=== PATIENT | female | born 1975 | race African-American/Black ===

== ENCOUNTER 2016-05-11 12:16 | Outpatient (CLI) ==
[2012-10-05 13:07] VITALS: TEMP 98.7
[2016-04-23 22:07] VITALS: BMI 30.7
--- NOTE | 2016-05-11 13:03 | DI ---
EXAM: Radiographs, right foot HISTORY: Right foot pain. COMPARISON: 02/05/2015. TECHNIQUE: Three views. FINDINGS: Bone mineralization is normal. There is no fracture or dislocation. Mild spurring seen at the first tarsal metatarsal joint. There are small calcaneal spurs. No focal soft tissue abnorm ality is seen. IMPRESSION: 1. Mild first TMT osteoarthritis. 2. Small calcaneal spurs.
== END 2016-05-11 12:17 | disposition home or self-care (01) ==
LOC: RAD 12:16
PROVIDERS: ATTEND Nurse Practitioner Family
DX: M79.671 Pain in right foot (principal); M79.89 Other specified soft tissue disorders

== ENCOUNTER 2016-06-02 10:03 | Outpatient (CLI) ==
[2012-10-05 13:07] VITALS: TEMP 98.7
[2016-04-23 22:07] VITALS: BMI 30.7
[2016-06-02 10:50] LABS: FLU INTERNAL QC INTERNAL QC VALID; RAPID FLU A NEGATIVE (NEGATIVE); RAPID FLU B NEGATIVE (NEGATIVE)
== END 2016-06-02 10:04 | disposition home or self-care (01) ==
LOC: LAB 10:03
PROVIDERS: ATTEND Nurse Practitioner Family
DX: J02.9 Acute pharyngitis, unspecified (principal); R50.9 Fever, unspecified; R52 Pain, unspecified
CPT/HCPCS: 87651; 87804; 87880

== ENCOUNTER 2016-11-10 16:47 | Outpatient (CLI) ==
[2012-10-05 13:07] VITALS: TEMP 98.7
[2016-04-23 22:07] VITALS: BMI 30.7
[2016-11-10 18:04] LABS: ALBUMIN/GLOBULIN RATIO 1.18; ANION GAP 17.7; BILIRUBIN,TOTAL 0.64 mg/dL (0.00-1.20); BUN/CREATININE RATIO 6.31; CALCIUM 9.1 mg/dL (8.2-10.2); CREATININE 0.95 mg/dL (0.60-1.30); TOTAL PROTEIN 7.4 g/dL (6.4-8.2)
[2016-11-10 18:13] LABS: POTASSIUM 2.7 mmol/L (3.5-5.10)
== END 2016-11-10 16:48 | disposition home or self-care (01) ==
LOC: LAB 16:47
PROVIDERS: ATTEND Nurse Practitioner Family
DX: T50.1X5A Adverse effect of loop [high-ceiling] diuretics, initial encounter (principal); J02.9 Acute pharyngitis, unspecified
CPT/HCPCS: 36415; 80053; 87880

== ENCOUNTER 2016-11-10 23:42 | Emergency (ER) | payer OTHER ==
[2012-10-05 13:07] VITALS: BP 151/78; TEMP 98.7
[2016-11-10] MEDS ORDERED: POTASSIUM CHLORIDE 40 MEQ VIAL-ADDITIVE ONLY IV ONE (23:45)
[2016-11-10] MEDS ORDERED: K-DUR PO STA (23:50)
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
[2016-11-10 23:54] VITALS: BP 134/89; TEMP 98.2; BMI 26.8
[2016-11-10] MEDS ORDERED: SODIUM CHLORIDE 0.9%-KCL 40MEQ 1,000 ML IV STA (23:54)
== END 2016-11-11 04:36 | disposition home or self-care (01) ==
LOC: ED 23:42
DX: E87.6 Hypokalemia (principal); Z79.899 Other long term (current) drug therapy
CPT/HCPCS: 36415; 80053; 84132; 87880; 96360; 96361; 99283

== ENCOUNTER 2016-11-18 07:10 | Inpatient (IN) ==
[2016-11-18 07:39] LABS: BASOPHILS % (AUTO) 0.5 % (0.0-3.0); EOSINOPHILS # (AUTO) 0.1 K/ul (0.0-0.7); EOSINOPHILS % (AUTO) 0.6 % (0.0-7.0); HEMATOCRIT 36.2 % (37.0-47.0); HEMOGLOBIN 13.3 g/dl (12.0-16.0); IMMATURE GRANULOCYTE % (AUTO) 0.8 % (0.0-5.0); LYMPHOCYTES # (AUTO) 2.2 K/uL (0.60-3.4); LYMPHOCYTES % (AUTO) 26.8 (10.0-50.0); MEAN CORPUSCULAR HGB CONC 36.7 (31.8-35.4); MEAN CORPUSCULAR VOLUME 87.2 fl (81.0-99.0); MONOCYTES # (AUTO) 0.8 K/uL (0.4-2.0); MONOCYTES % (AUTO) 9.1 (0-10); NEUTROPHILS # (AUTO) 5.2 K/ul (2.0-6.9); NEUTROPHILS % (AUTO) 62.2; PLATELET COUNT 281 10^3/uL (140-440); RED BLOOD COUNT 4.15 10^6/ul (4.20-5.40); WHITE BLOOD COUNT 8.37 K/ul (4.6-10.2)
[2016-11-18 07:54] LABS: SERUM PREGNANCY INTERNAL QC INTERNAL QC VALID
[2016-11-18 08:10] LABS: ALANINE AMINOTRANSFERASE 23 U/L (12-78); ALBUMIN 3.4 g/dL (3.4-5.0); ALBUMIN/GLOBULIN RATIO 1.21; ALKALINE PHOSPHATASE 36 U/L (42-98); ANION GAP 12.8; ASPARTATE AMINO TRANSFERASE 26 U/L (15-37); BILIRUBIN,TOTAL 0.23 mg/dL (0.00-1.20); BLOOD UREA NITROGEN 7 mg/dL (7-18); BUN/CREATININE RATIO 8.64; CALCIUM 8.8 mg/dL (8.2-10.2); CARBON DIOXIDE 23 mmol/L (21-32); CHLORIDE 106 mmol/L (98-107); CREATINE KINASE 260 U/L; CREATININE 0.81 mg/dL (0.60-1.30); GLUCOSE 60 mg/dL (70-110); POTASSIUM 2.8 mmol/L (3.5-5.10); SODIUM 139 mmol/L (136-145); TOTAL PROTEIN 6.2 g/dL (6.4-8.2)
[2016-11-18 08:14] LABS: CREATINE KINASE MB 1.8 ng/ml (0.0-3.6)
--- NOTE | 2016-11-18 08:38 | DI ---
EXAM: CHEST FRONTAL AND LATERAL VIEWS HISTORY: Chest pain. COMPARISON: 04/23/2016 FINDINGS: Heart size is normal Heart size and mediastinal contour within normal limits. No acute infiltrates. Normal vascularity with no pleural fluid or pneumothorax. The bony thorax has no acut e finding. IMPRESSION: No acute process.
[2016-11-18 08:47] LABS: COCAIN SCREEN,URINE NEGATIVE (NEGATIVE)
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
[2016-11-18] MEDS ORDERED: POTASSIUM CHLORIDE PREMIX RUN 10 MEQ in PREMIX 100 ML WATER 1 BAG IV STA (08:55)
[2016-11-18] MEDS ORDERED: NON-FORMULARY MEDICATION (Amantadine Hcl [Amantadine] 100 MG) PO SCH ×22 (09:00)
[2016-11-18] MEDS ORDERED: POTASSIUM CHLORIDE PREMIX RUN 100 ML IV ONE (10:03)
[2016-11-18] MEDS: SYMMETREL PO SCH ×2 (10:15→20:40)
[2016-11-18] MEDS: AUGMENTIN 875-125 MG TAB PO SCH ×2 (10:16→17:16)
[2016-11-18] MEDS: XANAX PO SCH ×3 (10:16→20:40)
[2016-11-18] MEDS: SODIUM CHLORIDE 1,000 ML IV SCH (10:18)
[2016-11-18 10:49] VITALS: BMI 26.8
[2016-11-18 12:26] LABS: ANION GAP 12.4; BUN/CREATININE RATIO 9.58; CALCIUM 8.6 mg/dL (8.2-10.2); CREATININE 0.73 mg/dL (0.60-1.30); POTASSIUM 3.4 mmol/L (3.5-5.10)
[2016-11-18 15:23] LABS: CREATINE KINASE 215 U/L
[2016-11-18 15:28] LABS: CREATINE KINASE MB 1.3 ng/ml (0.0-3.6)
[2016-11-18] MEDS: NEURONTIN PO SCH (20:41)
[2016-11-18] MEDS ORDERED: NON-FORMULARY MEDICATION (Gabapentin [Gabapentin] 600 MG) PO SCH (21:00)
[2016-11-18] MEDS ORDERED: NEURONTIN PO SCH (21:00)
[2016-11-18 23:31] LABS: CREATINE KINASE 183 U/L
[2016-11-18 23:46] LABS: CREATINE KINASE MB 1.1 ng/ml (0.0-3.6)
[2016-11-19] MEDS: SODIUM CHLORIDE 1,000 ML IV SCH ×3 (02:30→19:22)
[2016-11-19 04:54] LABS: BASOPHILS % (AUTO) 0.5 % (0.0-3.0); EOSINOPHILS # (AUTO) 0.1 K/ul (0.0-0.7); EOSINOPHILS % (AUTO) 1.3 % (0.0-7.0); HEMATOCRIT 32.4 % (37.0-47.0); HEMOGLOBIN 11.5 g/dl (12.0-16.0); IMMATURE GRANULOCYTE % (AUTO) 0.5 % (0.0-5.0); LYMPHOCYTES # (AUTO) 2.5 K/uL (0.60-3.4); LYMPHOCYTES % (AUTO) 40.3 (10.0-50.0); MEAN CORPUSCULAR HEMOGLOBIN 31.8 pg (27.0-31.0); MEAN CORPUSCULAR HGB CONC 35.5 (31.8-35.4); MEAN CORPUSCULAR VOLUME 89.5 fl (81.0-99.0); MONOCYTES # (AUTO) 0.5 K/uL (0.4-2.0); NEUTROPHILS # (AUTO) 3.1 K/ul (2.0-6.9); NEUTROPHILS % (AUTO) 49.4; PLATELET COUNT 219 10^3/uL (140-440); RED BLOOD COUNT 3.62 10^6/ul (4.20-5.40); WHITE BLOOD COUNT 6.28 K/ul (4.6-10.2)
[2016-11-19 05:12] LABS: ALBUMIN 2.8 g/dL (3.4-5.0); ALBUMIN/GLOBULIN RATIO 1.27; ANION GAP 12.2; BILIRUBIN,TOTAL 0.38 mg/dL (0.00-1.20); BUN/CREATININE RATIO 15.94; CALCIUM 8.1 mg/dL (8.2-10.2); CREATININE 0.69 mg/dL (0.60-1.30); POTASSIUM 3.2 mmol/L (3.5-5.10)
[2016-11-19] MEDS ORDERED: K-DUR PO STA (08:41)
[2016-11-19] MEDS: SYMMETREL PO SCH ×2 (08:57→20:27)
[2016-11-19] MEDS: AUGMENTIN 875-125 MG TAB PO SCH ×2 (08:57→16:56)
[2016-11-19] MEDS ORDERED: PREDNISONE PO SCH ×2 (10:00)
[2016-11-19] MEDS: XANAX PO SCH ×3 (11:10→20:27)
[2016-11-19 14:18] LABS: MAGNESIUM 2.1 mg/dL (1.7-2.2)
--- NOTE | 2016-11-19 14:31 | HP ---
DATE OF SERVICE: 11/18/16 CHIEF COMPLAINT: "I have been having some chest pain." HISTORY OF PRESENT ILLNESS: This is a 40-year-old female, who recently had a problem with potassium 2.6. The patient had overnight potassium transfusion in the emergency room and went home. The patient had, previous to admission, been drinking the whole night and began having chest pain. She started having a heavy pressure in the midsternal chest, radiates to the left side. She awoke with the pain, not associated with nausea , vomiting and no radiation, not short of breath. She has been taking Augmentin for strep throat and steroid medications. She was seen in the emergency room by Dr. Brower. Potassium was 2.8. EKG did not show any changes. At that time, in view of recurring hypokalemia, the patient is admitted with myalgias and hurting all over. The patient was admitted to the hospital for observation to replenish the potassium. REVIEW OF SYSTEMS: CONSTITUTIONAL: Weakness, tiredness, myalgias all over the body. No fever, no chills. HEENT: Normal. ENDOCRINE: No weight gain; no weight loss. CVS: Chest pain. No PND, no orthopnea. No shortness of breath. No PND, no orthopnea. RESPIRATORY: No cough, no congestion. No hemoptysis. GI: No nausea, no vomiting. No abdominal pain. No melena. : No hematuria. No polyuria. MUSCULOSKELETAL: No joint swelling. PSYCHIATRIC: Not anxious. No depression. No suicidal thoughts. No homicidal thoughts. SKIN: Intact, no open lesions. PAST MEDICAL HISTORY: 1. Dyslipidemia 2. Hypertension 3. Multiple sclerosis - sees neurologist Dr. Baxter in [place], [place]. 4. Lupus 5. Bipolar disorder 6. Depression 7. Anxiety 8. Nicotine use 9. Alcohol ingestion PAST SURGICAL HISTORY: 1. Septoplasty 2. times two 3. Gastric bypass - Lap Band 4. Hernia repair times two 5. Exploratory laparotomy FAMILY HISTORY: Significant for prostate cancer and thyroid problems. PERSONAL HISTORY: The patient does smoke, drinks alcohol sometimes. No substance use. MEDICATIONS: (HOME) 1. Multivitamin 2. Norethindrone Acetate 3. Prazosin 4. Buspirone 5. Calcium Carbonate 6. Xanax 7. Zyrtec 8. Interferon Beta-1A 9. Protonix 10. Plaquenil 11. Hydroxyzine 12. Vitamin B 13. Pristiq 14. Depo Provera 15. Gabapentin 16. Topamax 17. Prednisone 18. Amoxicillin/Clavulanic Acid 19. Hydrochlorothiazide 20. Fosamax ALLERGIES: MOXIFLOXACIN, LAMOTRIGINE, LITHIUM PHYSICAL EXAMINATION: V/S: BP 133/97, respiratory rate 18, heart rate 76, temperature 98.4. HEENT: Atraumatic, normocephalic. No scleral icterus. Pallor positive. Mucosa dry. NECK: Supple. No JVD, no bruit. No lymphadenopathy. No thyromegaly. HEART: S1, S2 normal. No murmur. No cyanosis or clubbing. No ascites. LUNGS: Bilaterally are clear to auscultation. No rales or rhonchi. ABDOMEN: Epigastric discomfort is present. Bowel sounds are active. No CVA tenderness. No rigidity or guarding. EXTREMITIES: No cyanosis, clubbing or pedal edema. MUSCULOSKELETAL: Normal joints, no swelling. NEUROLOGIC: The patient is awake, alert, oriented times three. SKIN: Intact; no open lesions. LYMPHATIC: No lymph nodes palpable. LABS: White count 8.37, hemoglobin 13.3, hematocrit 36.2, platelet count 281. Sodium 139, potassium 2.8, chloride 106, bicarb 23, BUN 7, creatinine 0.81, glucose 60. The first set of cardiac enzymes are negative. ASSESSMENT: 1. HYPOKALEMIA, RECURRENT 2. ALCOHOL INTOXICATION 3. EPIGASTRIC PAIN MOST LIKELY FROM THE STOMACH 4 HISTORY OF LUPUS 5. MULTIPLE SCLEROSIS 6. DEPRESSION 7. BIPOLAR PLAN: 1. Admit patient to the observation 2. IV potassium 3. Continue home medications 4. Recheck the potassium by evening time 5. Diet - regular 6. Activity as tolerated 7. Continue Amoxicillin and clavulanic acid for upper respiratory infection 8. Will follow the patient in daily rounds [facility]
--- NOTE | 2016-11-19 14:41 | PN ---
DATE OF SERVICE: 11/19/16 SUBJECTIVE: The patient is admitted with hypokalemia. Potassium went up to 3.4 and now down to 3.2. No abdominal pain. No nausea or myalgias. REVIEW OF SYSTEMS: CONSTITUTIONAL: No fever, no chills. HEENT: Normal. ENDOCRINE: No weight gain, no weight loss. CVS: No angina symptoms. No CHF symptoms. No palpitations. No atypical chest pain for CAD. No shortness of breath. No PND, no orthopnea. RESPIRATORY: No cough, no hemoptysis. GI: No nausea, no vomiting. No abdominal pain. : No hematuria. No polyuria. MUSCULOSKELETAL:. No joint swelling. No myalgias. PSYCHIATRIC: Not anxious. No depression. No suicidal thoughts. No homicidal thoughts. SKIN: Intact. No rash. PHYSICAL EXAMINATION: V/S: BP 132/93, respiratory rate 20, heart rate 73, temperature 98.2. HEENT: Normocephalic, atraumatic. Mucosa dry, pallor positive. No icterus. NECK: Supple. No JVD, no carotid bruit. No lymphadenopathy. LUNGS: Decreased breath sounds. Clear to auscultation. No rales or rhonchi. HEART: S1, S2 normal. No S3. No murmur, gallop or regurgitation. ABDOMEN: Soft, nontender. Bowel sounds active. No rigidity. No rebound or guarding. No CVA tenderness. EXTREMITIES: No clubbing, cyanosis or pedal edema. MUSCULOSKELETAL: No joint swelling. NEUROLOGIC: The patient is awake, alert, oriented times three. No focal deficit. LYMPHATIC: No lymph nodes palpable. SKIN: Intact. LABS: Sodium 138, potassium 3.2, chloride 109, bicarb 20, BUN 11, creatinine 0.69, glucose 69. White count 6.28, hemoglobin 11.5, hematocrit 32.4, platelet count 219. ASSESSMENT: 1. HYPOKALEMIA 2. GERD 3. PEPTIC ULCER DISEASE 4. UPPER RESPIRATORY INFECTION BEING TREATED WITH AMOXICILLIN, CLAVULANIC ACID 5. MULTIPLE SCLEROSIS 6. LUPUS 7. DEPRESSION, BIPOLAR PLAN: 1. Extra 40 potassium today 2. IV fluids 3. Recheck potassium and magnesium by noontime 4. Out of bed to chair 5. Activity as tolerated TIME SPENT: More than 30 minutes MTDD
[2016-11-19] MEDS: NEURONTIN PO SCH (20:27)
[2016-11-19 23:59] VITALS: BP 109/84; TEMP 98
--- NOTE | 2016-11-25 14:42 | AMA ---
HISTORY: The patient was upset that she has to stay in the hospital. Tried to explain that because of the potassiums she needed to be in the hospital and continue the potassium. The patient said that she doesn't have to stay and she has things to do at home so she talked to the nurse Albertina and signed out AMA. Explained that incase the patient's symptoms get worse she is always advised to come back. LIVIER
== END 2016-11-19 22:50 | disposition left against medical advice (07) | DRG 313 ==
LOC: ED 07:10 → MEDSURG B 09:10
PROVIDERS: ADMIT Emergency Medicine; ATTEND Emergency Medicine
DX: R07.9 Chest pain, unspecified (principal); E87.6 Hypokalemia; M32.9 Systemic lupus erythematosus, unspecified; G35 Multiple sclerosis; F10.129 Alcohol abuse with intoxication, unspecified; K27.9 Peptic ulcer, site unspecified, unspecified as acute or chronic, without hemorrhage or perforation; J06.9 Acute upper respiratory infection, unspecified; F32.9 Major depressive disorder, single episode, unspecified; Z79.899 Other long term (current) drug therapy
CPT/HCPCS: 36415; 80048; 80053; 80306; 80307; 82550; 82553; 83735; 84132; 84484; 84703; 85025; 93005; 93010; 99284

== ENCOUNTER 2016-11-24 16:57 | Outpatient (CLI) ==
[2012-10-05 13:07] VITALS: TEMP 98.7
[2016-11-24 17:37] LABS: ALBUMIN 3.7 g/dL (3.4-5.0); ALBUMIN/GLOBULIN RATIO 1.09; ANION GAP 13.3; BILIRUBIN,TOTAL 0.37 mg/dL (0.00-1.20); BUN/CREATININE RATIO 7.29; CALCIUM 9.6 mg/dL (8.2-10.2); CREATININE 0.96 mg/dL (0.60-1.30); POTASSIUM 3.3 mmol/L (3.5-5.10); TOTAL PROTEIN 7.1 g/dL (6.4-8.2)
== END 2016-11-24 16:58 | disposition home or self-care (01) ==
LOC: LAB 16:57
PROVIDERS: ATTEND Emergency Medicine
DX: E87.6 Hypokalemia (principal)
CPT/HCPCS: 36415; 80053

== ENCOUNTER 2016-12-23 13:25 | Outpatient (CLI) ==
[2012-10-05 13:07] VITALS: TEMP 98.7
[2016-12-23 13:35] LABS: HEMATOCRIT 37.8 % (37.0-47.0); HEMOGLOBIN 13.2 g/dl (12.0-16.0); MEAN CORPUSCULAR HGB CONC 34.9 (31.8-35.4); MEAN CORPUSCULAR VOLUME 91.7 fl (81.0-99.0); RED BLOOD COUNT 4.12 10^6/ul (4.20-5.40); WHITE BLOOD COUNT 6.11 K/ul (4.6-10.2)
[2016-12-23 13:38] LABS: BILIRUBIN,URINE Negative (NEGATIVE); KETONES,URINE Negative (NEGATIVE); LEUKOCYTE ESTERASE ,URINE Negative (NEGATIVE); NITRITE,URINE Negative (NEGATIVE); PROTEIN,URINE Negative (NEGATIVE); URINE, BLOOD Negative (NEGATIVE)
[2016-12-23 13:40] LABS: ADD URINE MICROSCOPIC NO
[2016-12-23 13:46] LABS: ALBUMIN 3.6 g/dL (3.4-5.0); ALBUMIN/GLOBULIN RATIO 1.09; ANION GAP 16.7; BILIRUBIN,TOTAL 0.35 mg/dL (0.00-1.20); BUN/CREATININE RATIO 6.25; CALCIUM 9.4 mg/dL (8.2-10.2); CREATININE 0.96 mg/dL (0.60-1.30); POTASSIUM 3.7 mmol/L (3.5-5.10); TOTAL PROTEIN 6.9 g/dL (6.4-8.2)
[2016-12-24 07:18] LABS: COMPLEMENT C3 87 mg/dL (82-167); COMPLEMENT C4 16 mg/dL (14-44)
== END 2016-12-23 13:26 | disposition home or self-care (01) ==
LOC: LAB 13:25
PROVIDERS: ATTEND Internal Medicine Rheumatology
DX: Z51.81 Encounter for therapeutic drug level monitoring (principal); M32.9 Systemic lupus erythematosus, unspecified
CPT/HCPCS: 36415; 80053; 81001; 85025; 85027; 86160; 86225

== ENCOUNTER 2017-03-16 11:56 | Outpatient (CLI) ==
[2012-10-05 13:07] VITALS: TEMP 98.7
== END 2017-03-16 11:57 | disposition home or self-care (01) ==
LOC: LAB 11:56
PROVIDERS: ATTEND Specialist
DX: G35 Multiple sclerosis (principal)
CPT/HCPCS: 36415

== ENCOUNTER 2017-04-13 09:03 | Outpatient (CLI) ==
[2012-10-05 13:07] VITALS: TEMP 98.7
[2017-04-13 10:22] LABS: FLU INTERNAL QC INTERNAL QC VALID; RAPID FLU A NEGATIVE (NEGATIVE); RAPID FLU B NEGATIVE (NEGATIVE)
== END 2017-04-13 09:04 | disposition home or self-care (01) ==
LOC: LAB 09:03
PROVIDERS: ATTEND Nurse Practitioner Family
DX: J02.9 Acute pharyngitis, unspecified (principal); R52 Pain, unspecified
CPT/HCPCS: 87651; 87804; 87880

== ENCOUNTER 2017-05-31 10:18 | Emergency (ER) ==
[2017-05-31 10:26] VITALS: BP 135/88; TEMP 98.1; BMI 28.7
--- NOTE | 2017-05-31 12:48 | CT ---
EXAM: CT head without contrast HISTORY: Dizziness COMPARISON: CT head 04/23/2016 and 12/04/2015 with prior MRI 02/11/2015 and multiple priors TECHNIQUE: Serial axial images of the brain were obtained from the skull base to the vertex without IV contrast. FINDINGS: The ventricles, cisterns and sulci are normal. The rowan-white matter junction is maintain ed. No midline shift or mass is identified. There is no abnormal intra or extra-axial fluid collect ion. The paranasal sinuses and mastoid air cells are clear. The osseous calvarium is intact. IMPRESSION: No acute intracranial abnormality or hemorrhage.
--- NOTE | 2017-05-31 12:53 | DI ---
EXAM: PA and lateral views of the chest HISTORY: Cough. COMPARISON: Chest x-ray 11/18/2016 and multiple priors FINDINGS: The cardiomediastinal silhouette is normal. There is no pneumothorax or pleural effusion. There is no consolidation, nodule or mass. The osseous structures are unremarkable. Soft tissues i n the upper abdomen demonstrates surgical changes and a gastric band. IMPRESSION: No acute cardiopulmonary process
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
== END 2017-05-31 13:32 | disposition home or self-care (01) ==
LOC: ED 10:18
DX: R53.1 Weakness (principal); E78.5 Hyperlipidemia, unspecified; I10 Essential (primary) hypertension; F17.210 Nicotine dependence, cigarettes, uncomplicated; Z79.899 Other long term (current) drug therapy
CPT/HCPCS: 36415; 80053; 81025; 85025; 87502; 87651; 93005; 93010; 99283

== ENCOUNTER 2017-06-11 13:48 | Outpatient (CLI) ==
[2012-10-05 13:07] VITALS: TEMP 98.7
== END 2017-06-11 13:49 | disposition home or self-care (01) ==
LOC: LAB 13:48
PROVIDERS: ATTEND Nurse Practitioner Family
DX: R05 Cough (principal)
CPT/HCPCS: 87804

== ENCOUNTER 2017-06-15 15:55 | Outpatient (CLI) | payer OTHER ==
[2012-10-05 13:07] VITALS: TEMP 98.7
== END 2017-06-15 15:56 | disposition home or self-care (01) ==
LOC: LAB 15:55
PROVIDERS: ATTEND Nurse Practitioner Family
DX: J02.9 Acute pharyngitis, unspecified (principal)
CPT/HCPCS: 87651

== ENCOUNTER 2017-06-21 15:32 | Outpatient (CLI) ==
[2012-10-05 13:07] VITALS: TEMP 98.7
== END 2017-06-21 15:33 | disposition home or self-care (01) ==
LOC: FCC-LAB 15:32
PROVIDERS: ATTEND Nurse Practitioner Family
DX: R50.9 Fever, unspecified (principal); M32.9 Systemic lupus erythematosus, unspecified
CPT/HCPCS: 36415; 80053; 85025; 87804

== ENCOUNTER 2017-06-22 16:11 | Outpatient (CLI) | payer OTHER ==
[2012-10-05 13:07] VITALS: TEMP 98.7
== END 2017-06-22 16:12 | disposition home or self-care (01) ==
LOC: FCC-LAB 16:11
PROVIDERS: ATTEND Nurse Practitioner Family
DX: M32.9 Systemic lupus erythematosus, unspecified (principal)
CPT/HCPCS: 36415; 85651

== ENCOUNTER 2017-07-19 16:27 | Outpatient (CLI) ==
[2012-10-05 13:07] VITALS: TEMP 98.7
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
== END 2017-07-19 16:28 | disposition home or self-care (01) ==
LOC: RAD 16:27
PROVIDERS: ATTEND Nurse Practitioner Family
DX: M54.6 Pain in thoracic spine (principal); M79.601 Pain in right arm; W19.XXXA Unspecified fall, initial encounter

== ENCOUNTER 2017-10-07 23:38 | Emergency (ER) ==
[2017-10-07 23:50] VITALS: BP 125/76; TEMP 97.9; BMI 28.8
[2017-10-07] MEDS ORDERED: DILAUDID 2 MG/ML SYRINGE IM STA (23:55)
[2017-10-07] MEDS ORDERED: ZOFRAN 4 MG/2 ML IM STA (23:55)
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
== END 2017-10-08 00:30 | disposition home or self-care (01) ==
LOC: ED 23:38
DX: R51 Headache (principal); F17.210 Nicotine dependence, cigarettes, uncomplicated
CPT/HCPCS: 96372; 99282

== ENCOUNTER 2017-10-11 15:29 | Outpatient (CLI) ==
[2012-10-05 13:07] VITALS: TEMP 98.7
--- NOTE | 2017-10-11 16:37 | CT ---
EXAM: CT of the abdomen pelvis without contrast History: Generalized abdominal pain. Comparison: CT abdomen pelvis 11/2015 Technique: Multiplanar CT images through the abdomen pelvis were obtained without the administration of IV contrast Findings: Lung bases are clear. No acute osseous abnormalities. No discrete gallstones identified by CT. No focal liver or splenic lesions. No abdirahman peripancreatic inflammation. Adrenal glands are unremarkable. No renal stones and no hydronephrosis. Postoperati ve changes of the bowel again noted. There is dilatation near the anastomosis but this is similar to the prior study. The gastric band device is at a more obtuse angle than expected but is stable comp ared to the prior study. The appendix is normal. There are several mildly dilated fluid-filled loop s of small bowel with no definite transition point identified. No bladder wall thickening. Scattere d colonic stool. No free air. No ascites. No change in the small ventral hernia containing fat. Impression: 1. Mildly dilated fluid-filled loops of small bowel could be due to enteritis, ileus versus low grad e or subacute small bowel obstruction. 2. The gastric band device is at a more obtuse angle than expected but stable compared to the prior study.
== END 2017-10-11 15:30 | disposition home or self-care (01) ==
LOC: RAD 15:29
PROVIDERS: ATTEND Nurse Practitioner Family
DX: R10.84 Generalized abdominal pain (principal); R19.7 Diarrhea, unspecified; J02.9 Acute pharyngitis, unspecified
CPT/HCPCS: 36415; 80053; 81001; 82150; 83690; 85025; 87651

== ENCOUNTER 2017-10-13 14:46 | Inpatient (IN) | payer OTHER ==
[2017-10-13] MEDS ORDERED: TYLENOL PO PRN (15:05)
[2017-10-13] MEDS ORDERED: ZOFRAN 4 MG/2 ML IVP PRN (15:06)
[2017-10-13 15:25] VITALS: BMI 29.9
[2017-10-13] MEDS ORDERED: VITAMIN B-12 IM SCH (15:30)
[2017-10-13] MEDS ORDERED: NORCO 5-325 PO PRN (15:30)
[2017-10-13] MEDS: SODIUM CHLORIDE 1,000 ML IV SCH (15:45)
[2017-10-13] MEDS: PROTONIX IV IVP SCH (16:10)
[2017-10-13] MEDS: LOVENOX SUBCUT SCH (16:10)
[2017-10-13] MEDS: NICODERM 21 MG TD SCH (16:45)
[2017-10-13] MEDS: CARAFATE PO SCH ×2 (16:46→21:03)
[2017-10-13] MEDS: DEMEROL 50 MG/ML VIAL IVP PRN (16:48)
[2017-10-13] MEDS ORDERED: NEURONTIN ONE (20:23)
[2017-10-13] MEDS ORDERED: NEURONTIN PO SCH (21:00)
[2017-10-13] MEDS ORDERED: NON-FORMULARY MEDICATION (Potassium Chloride [Potassium Chloride] 20 MEQ) PO SCH (21:00)
[2017-10-13] MEDS ORDERED: NON-FORMULARY MEDICATION (Prazosin Hcl [Prazosin Hcl] 2 MG) PO SCH (21:00)
[2017-10-13] MEDS ORDERED: NON-FORMULARY MEDICATION (Gabapentin [Gabapentin] 600 MG) PO SCH (21:00)
[2017-10-13] MEDS: MINIPRESS PO SCH (21:03)
[2017-10-13] MEDS: XANAX PO SCH (21:03)
[2017-10-13] MEDS: K-DUR PO SCH (21:03)
[2017-10-13] MEDS: GABAPENTIN 600 MG PO SCH ×2 (21:04→21:12)
[2017-10-13] MEDS: GABAPENTIN 1800 MG PO SCH (21:15)
[2017-10-14] MEDS: NORCO 5-325 PO PRN ×2 (01:13→20:27)
[2017-10-14] MEDS: SODIUM CHLORIDE 1,000 ML IV SCH ×2 (04:33→16:44)
[2017-10-14] MEDS: CARAFATE PO SCH ×4 (05:51→20:27)
[2017-10-14] MEDS: MULTIVITAMIN TABLET PO SCH (08:43)
[2017-10-14] MEDS: HYDROCHLOROTHIAZIDE PO SCH (08:43)
[2017-10-14] MEDS: ATARAX PO SCH (08:43)
[2017-10-14] MEDS: XANAX PO SCH ×3 (08:44→20:27)
[2017-10-14] MEDS: PRISTIQ ER PO SCH (08:44)
[2017-10-14] MEDS: NICODERM 21 MG TD SCH (08:44)
[2017-10-14] MEDS: PROTONIX IV IVP SCH (08:44)
[2017-10-14] MEDS: K-DUR PO SCH ×2 (08:44→20:27)
[2017-10-14] MEDS: ZYRTEC PO SCH (08:44)
[2017-10-14] MEDS: ZESTRIL PO SCH (08:44)
[2017-10-14] MEDS: LURASIDONE HCL 40 MG PO SCH (08:45)
[2017-10-14] MEDS: NORETHINDRONE ACETATE 5 MG PO SCH (08:45)
[2017-10-14] MEDS: LOVENOX SUBCUT SCH (08:46)
[2017-10-14] MEDS ORDERED: MYLANTA SUSP PO PRN (08:56)
[2017-10-14] MEDS ORDERED: NON-FORMULARY MEDICATION (Desvenlafaxine Succinate [Pristiq] 100 MG) PO SCH (09:00)
[2017-10-14] MEDS ORDERED: NON-FORMULARY MEDICATION (Hydrochlorothiazide [Hydrochlorothiazide] 12.5 MG) PO SCH (09:00)
[2017-10-14] MEDS ORDERED: NON-FORMULARY MEDICATION (Multivitamin 1 CAP) PO SCH (09:00)
[2017-10-14] MEDS: PREDNISONE PO SCH (09:14)
[2017-10-14] MEDS: GABAPENTIN 1800 MG PO SCH (20:26)
[2017-10-14] MEDS: MINIPRESS PO SCH (20:27)
[2017-10-15] MEDS: SODIUM CHLORIDE 1,000 ML IV SCH ×3 (05:02→21:37)
[2017-10-15] MEDS: CARAFATE PO SCH ×4 (05:45→20:55)
[2017-10-15] MEDS: NORETHINDRONE ACETATE 5 MG PO SCH (08:58)
[2017-10-15] MEDS: LURASIDONE HCL 40 MG PO SCH (08:58)
[2017-10-15] MEDS: MULTIVITAMIN TABLET PO SCH (08:58)
[2017-10-15] MEDS: XANAX PO SCH ×3 (08:59→20:55)
[2017-10-15] MEDS: PREDNISONE PO SCH (08:59)
[2017-10-15] MEDS: ATARAX PO SCH (08:59)
[2017-10-15] MEDS: K-DUR PO SCH ×2 (08:59→20:55)
[2017-10-15] MEDS: PRISTIQ ER PO SCH (08:59)
[2017-10-15] MEDS: ZESTRIL PO SCH (09:00)
[2017-10-15] MEDS: PROTONIX IV IVP SCH (09:00)
[2017-10-15] MEDS: NORCO 5-325 PO PRN ×3 (09:00→22:28)
[2017-10-15] MEDS: ZYRTEC PO SCH (09:00)
[2017-10-15] MEDS: HYDROCHLOROTHIAZIDE PO SCH (09:00)
[2017-10-15] MEDS: LOVENOX SUBCUT SCH (09:01)
[2017-10-15] MEDS: NICODERM 21 MG TD SCH (09:01)
--- NOTE | 2017-10-15 10:49 | DI ---
EXAM: Two views of the abdomen. History: Abdominal pain and diarrhea. Comparison: CT abdomen pelvis 10/11/2017 Findings: Nonspecific bowel gas pattern. Scattered colonic stool. Surgical changes are seen within the abdomen. Gastric band device is again seen with more obtuse angle than expected but stable comp ared to the prior study. No acute osseous abnormalities. No suspicious calcifications are seen proj ecting over the renal shadows. No free intraperitoneal air. Impression: Nonspecific but nonobstructive bowel gas pattern
[2017-10-15] MEDS: DEMEROL 50 MG/ML VIAL IVP PRN (13:02)
--- NOTE | 2017-10-15 15:25 | PN ---
DATE OF SERVICE: 10/14/17 SUBJECTIVE: The patient was admitted from the office for questionable small bowel obstruction and gastroenteritis. The patient was kept NPO and started having some bowel movements and nauseous feeling is better. She was able to tolerate the clear liquid diet. REVIEW OF SYSTEMS: CONSTITUTIONAL: No fever, no chills. HEENT: Normal. ENDOCRINE: No weight gain, no weight loss. CVS: No angina symptoms. No CHF symptoms. No palpitations. No atypical chest pain for CAD. No shortness of breath. No PND, no orthopnea. RESPIRATORY: No cough, no hemoptysis. GI: No nausea, no vomiting. No abdominal pain. : No hematuria. No polyuria. MUSCULOSKELETAL: No joint swelling. PSYCHIATRIC: Not anxious. No depression. No suicidal thoughts. No homicidal thoughts. SKIN: Intact. No rash. PHYSICAL EXAMINATION: V/S: Blood pressure 120/79, respiratory rate 16, heart rate 70, temperature 97.9. HEENT: Normocephalic, atraumatic. Mucosa dry. NECK: Supple. No JVD, no carotid bruit. No lymphadenopathy. LUNGS: Clear to auscultation. No rales or rhonchi. HEART: S1, S2 normal. No S3. No murmur, gallop or regurgitation. ABDOMEN: Soft, discomfort all over. Bowel sounds hypoactive. No rigidity. No rebound or guarding. No CVA tenderness. EXTREMITIES: No cyanosis, clubbing or pedal edema. MUSCULOSKELETAL: No joint swelling. NEUROLOGIC: Awake, alert, oriented times three. No focal deficit. LYMPHATIC: No lymph nodes palpable. SKIN: Intact. LABS: Sodium 140, potassium 3.6, chloride 114, bicarb 19, BUN 7, creatinine 0.71 and glucose 69. WBC 4.01, hgb 11.2, hct 34.4, plt count 123. ASSESSMENT: 1. Gastroenteritis 2. Small bowel obstruction 3. History of gastric bypass surgery 4. Multiple sclerosis 5. Obesity 6. Hypertension 7. Osteoarthritis PLAN: 1. Clear liquid diet 2. Advance as tolerated 3. Demerol for the pain 4. IV fluids 5. Daily I&O's TIME SPENT: More than 35 minutes MTDD
[2017-10-15] MEDS: MINIPRESS PO SCH (20:55)
[2017-10-15] MEDS: GABAPENTIN 1800 MG PO SCH (20:55)
[2017-10-16] MEDS ORDERED: VISTARIL INJ IM STA (00:15)
[2017-10-16] MEDS: DEMEROL 50 MG/ML VIAL IVP PRN (00:25)
[2017-10-16] MEDS: CARAFATE PO SCH ×3 (05:50→17:12)
[2017-10-16] MEDS: PRISTIQ ER PO SCH (08:09)
[2017-10-16] MEDS: PREDNISONE PO SCH (08:09)
[2017-10-16] MEDS: ATARAX PO SCH (08:09)
[2017-10-16] MEDS: K-DUR PO SCH (08:09)
[2017-10-16] MEDS: LURASIDONE HCL 40 MG PO SCH (08:09)
[2017-10-16] MEDS: NORETHINDRONE ACETATE 5 MG PO SCH (08:09)
[2017-10-16] MEDS: ZYRTEC PO SCH (08:09)
[2017-10-16] MEDS: MULTIVITAMIN TABLET PO SCH (08:10)
[2017-10-16] MEDS: NICODERM 21 MG TD SCH (08:10)
[2017-10-16] MEDS: HYDROCHLOROTHIAZIDE PO SCH (08:10)
[2017-10-16] MEDS: ZESTRIL PO SCH (08:10)
[2017-10-16] MEDS: XANAX PO SCH ×2 (08:10→16:59)
[2017-10-16] MEDS ORDERED: PROTONIX PO STA (08:11)
[2017-10-16] MEDS: PROTONIX IV IVP SCH (08:11)
[2017-10-16] MEDS: LOVENOX SUBCUT SCH (10:23)
[2017-10-16 10:27] VITALS: TEMP 98
[2017-10-16 13:52] VITALS: BP 101/66
--- NOTE | 2017-10-19 07:12 | DS ---
DATE OF SERVICE: 10/16/17 FINAL DIAGNOSIS: 1. QUESTIONABLE SMALL BOWEL OBSTRUCTION PER CT SCAN 2. PARTIAL SMALL BOWEL OBSTRUCTION 3. ENTERITIS 4. DYSLIPIDEMIA 5. HYPERTENSION 6. MULTIPLE SCLEROSIS, SHABNAM ELLSWORTH, NEUROLOGIST 7. LUPUS 8. BIPOLAR DISORDER 9. DEPRESSION 10. SEPTOPLASTY 11. 12. GASTRIC LAP BAND SURGERY 13. HERNIORRHAPHY 14. EXPLORATORY LAPAROTOMY 15. CURRENT EVERY DAY SMOKER 16. OCCASIONAL ALCOHOL DISCHARGE INSTRUCTIONS: Followup appointment at the [facility] within 5 to 7 days. MEDICATIONS AT DISCHARGE: B12 Astelin Cyclobenzeprine Hydrochlorothiazide Hydroxyzine Lisinopril Zofran Protonix Potassium Carafate Hydrocodone Fosamax Xanax Calcium Zyrtec Pristiq Neurontin Avenox Latuda Depo-Provera Multivitamin Prozac Prednisone NEW PRESCRIPTIONS: None DIET INSTRUCTIONS: Cardiac and Healthy, Soft, bland diet. ACTIVITY: As much as tolerated. DISEASE SPECIFIC EDUCATION: Small bowel obstruction and resolution has been discussed. Nonsurgical management discussed. HOSPITAL COURSE: This is a 41-year-old female with multiple medical problems and surgeries on the abdomen for weight loss. She went and saw Yina Resendez for abdominal pain, diarrhea for which she did the CT abdomen and pelvis which showed enteritis and partial small bowel obstruction. At that time, the patient was admitted directly from the office to the hospital. She was kept NPO. Bowel movements were liquid like the first day and second day. Slowly the patient started having increased appetite, started on clear liquids, was able to tolerate. She was up and about walking, did not have any problems. As the patient was active and mobile, Lovenox DVT prophylaxis was not given. We did one more chest x-ray which did not show any obstructive pathology. The patient one day had sinus tachycardia of 140 when she suddenly got up and went to the bathroom and resolved by itself. Will go ahead and order TSH levels and will followup with the patient in the office within 5 to 7 days. TIME SPENT: MORE THAN 65 MINUTES MTDD
[2017-10-20] MEDS ORDERED: FOSAMAX PO SCH (09:00)
== END 2017-10-16 17:33 | disposition home or self-care (01) | DRG 392 ==
LOC: MEDSURG B 14:46
PROVIDERS: ADMIT Emergency Medicine; ATTEND Emergency Medicine
DX: K52.9 Noninfective gastroenteritis and colitis, unspecified (principal); G35 Multiple sclerosis; M32.9 Systemic lupus erythematosus, unspecified; M79.7 Fibromyalgia; E78.5 Hyperlipidemia, unspecified; I10 Essential (primary) hypertension; R10.9 Unspecified abdominal pain; E66.9 Obesity, unspecified; R19.7 Diarrhea, unspecified; M19.90 Unspecified osteoarthritis, unspecified site; F32.9 Major depressive disorder, single episode, unspecified; F31.9 Bipolar disorder, unspecified; Z72.0 Tobacco use; Z68.29 Body mass index [BMI] 29.0-29.9, adult; Z87.898 Personal history of other specified conditions; Z98.890 Other specified postprocedural states
CPT/HCPCS: 36415; 80053; 81001; 81025; 84436; 84443; 84479; 85025

== ENCOUNTER 2017-10-20 06:30 | Outpatient (CLI) ==
[2012-10-05 13:07] VITALS: TEMP 98.7
--- NOTE | 2017-10-20 10:01 | ECHO2D ---
Date of Exam: 10/20/17 Ordering Physician: DR. LYNNETTE HORTON Room #: OP Reason for Echo: PALPITATIONS, SYNCOPE M-Mode Normal Adult Results LV Dimensions Normal Adult Results AoV Opening excursions >1.6 >1.6 LVEDD-base- 3.5-5.8 4.3 Ao root dimensions 2.0-3.7 3.1 LVESD-base- 3.1-4.6 L. Atrium dimensions 1.9-3.8 3.1 Post. Wall thickness 0.8-1.1 1.0 IV septum (thickness) 0.7-1.2 1.0 Post. Wall excursion 0.72-1.3 NORMAL Septal motion NORMAL Systolic motion R. Ventricular cavity 1.5-2.0 NORMAL LVEF 60% 55% Paradoxical septal wall motion NORMAL 2-D : 2-D M Mode Echocardiogram was performed using apical four chamber and left parasternal long and short axis views. Mitral, tricuspid and aortic valves appear to be normal. Contractility of the left ventricle seems to be normal, so is the cavity size. Left atrial cavity size and aortic root appear to be normal. There is no pericardial effusion. There is no thrombus noted in the left ventricular or left aortic cavity. No mitral valve prolapse noted. M-MODE: MV: NORMAL AV: NORMAL TV: NORMAL PV: CHAMBER SIZE: NORMAL WALL MOTION: NORMAL PERICARDIUM: NORMAL INTERPRETATION: 1. NORMAL 2 "D" "M" [facility]
== END 2017-10-20 06:31 | disposition home or self-care (01) ==
LOC: CAR 06:30
PROVIDERS: ATTEND Emergency Medicine
DX: R00.2 Palpitations (principal); R55 Syncope and collapse

== ENCOUNTER 2017-10-22 06:46 | Outpatient (CLI) ==
[2012-10-05 13:07] VITALS: TEMP 98.7
--- NOTE | 2017-10-22 10:34 | STRESSECHO ---
Date of Test:10/22/17 Ordering Physician: DR. LYNNETTE HORTON Occupation: DISABLED Reason for Exam: PALPITATIONS, SYNCOPE Smoking History: 15 PK/YR Height: 66 " Weight: 184 LBS Current Medications: PRISTIQ, GABAPENTIN, ZOFRAN, PROTONIX, HCTZ, HYDROXYZINE, DEPO-PROVERA, CYCLOBENZAPRINE, HYDROCODONE, LATUDA, CARAFATE, LISINOPRIL Resting EKG: SINUS RHYTHM/ POOR R WAVE PROGRESSION Target Heart Rate: 153/180 S-T SEGMENT STAGE MPH/GRADE HEART RATE BPM BLOOD PRESSURE MMHG RHYTHM +/- ELEVATION DEPRESSION SYMPTOMS,COMMENTS AT REST 70 118/78 SR X NONE 1 1.7/10% 126 140/70 SR X NONE 2 2.5/12% 3 3.4/14% 4 4.2/16% 5 5.0/18% Immediately After 153 152/80 SR X FATIGUE Minutes Post Exercise 1:00 116 162/80 SR X NO COMMENTS Minutes Post Exercise 5:00 80 SR X NO COMMENTS DURATION OF EXERCISE: 4:52 MAXIMUM HEART RATE REACHED: 153 BPM REASON FOR TERMINATION: FATIGUE 98% OXYGEN SATURATION WITH EXERCISE ON ROOM AIR METS: 7.0 INTERPRETATION: 1. NO EVIDENCE OF ISCHEMIA BYS T-T WAVE 2. NO CHEST PAIN OR CHEST DISCOMFORT 3. BLOOD PRESSURE RESPONSE: NORMAL 4. NO ARRHYTHMIAS NORMAL LEFT VENTRICULAR CONTRACTILITY--RESTING AND POST EXERCISE MTDD
--- NOTE | 2017-10-22 10:36 | ECHOSTRESS ---
Date of Exam: 10/22/17 Ordering Physician: DR. LYNNETTE HORTON Reason for Echo: SYNCOPE WITH COLLAPSE, PALPITATIONS, STRESS TEST--NO ISCHEMIA M-Mode Normal Adult Results LV Dimensions Normal Adult Results AoV Opening excursions >1.6 LVEDD-base- 3.5-5.8 Ao root dimensions 2.0-3.7 LVESD-base- 3.1-4.6 L. Atrium dimensions 1.9-3.8 Post. Wall thickness 0.8-1.1 IV septum (thickness) 0.7-1.2 Post. Wall excursion 0.72-1.3 Septal motion Systolic motion R. Ventricular cavity 1.5-2.0 LVEF 60% Paradoxical septal wall motion 2-D: NORMAL LEFT VENTRICULAR CONTRACTILITY--RESTING AND POST EXERCISE M-MODE: MV: AV: TV: PV: CHAMBER SIZE: WALL MOTION: NORMAL LEFT VENTRICULAR CONTRACTILITY--RESTING AND POST EXERCISE PERICARDIUM: INTERPRETATION: 1. NORMAL LEFT VENTRICULAR CONTRACTILITY--RESTING AND POST EXERCISE MTDD
--- NOTE | 2017-10-26 10:49 | HOLTER ---
PATIENT INFORMATION AND COMMENTS Attending Physician: DR. LYNNETTE HORTON Indications: PALPITATIONS, SYNCOPE WITH COLLAPSE __ Patient Medications: ALPRAZOLAM, PROMETHAZINE, GABAPENTIN, ZOFRAN, PROTONIX, HCTZ, DEPO-PROVERA, NORCO, LATUDA, CARAFATE, LISINOPRIL __ Pre-procedure Summary: Protocol: Standard Heart Rate Started: 10/22/17842 Minimum: 56 BPM Weight: 184 LBS Ended: 10/23/17842 Maximum: 157 BPM Height: 66" Duration: 24 HOURS Average: 81 BPM _ INTERPRETATIONS/OBSERVATIONS: 1. BASIC RHYTHM: SINUS, RATE 60 BPM TO 150 BPM, AVERAGE 80 BPM 2. RARE PVC'S, FEW TO INFREQUENT PAC'S 3. TWO SHORT RUNS OF SVT ( 4 BEATS EACH) 4. NO ST-T WAVE CHANGES FROM BASELINE 5. NO CORRELATION WITH ACTIVITY LOG MTDD
== END 2017-10-22 06:47 | disposition home or self-care (01) ==
LOC: CAR 06:46
PROVIDERS: ATTEND Emergency Medicine
DX: R55 Syncope and collapse (principal); R07.2 Precordial pain; R00.2 Palpitations
CPT/HCPCS: 93227

== ENCOUNTER 2017-12-20 11:04 | Outpatient (CLI) | payer OTHER ==
[2012-10-05 13:07] VITALS: TEMP 98.7
--- NOTE | 2017-12-20 22:46 | MRI ---
EXAM: Cervical spine MRI with and without contrast. HISTORY: Multiple sclerosis. Neck pain. COMPARISON: Cervical spine MRI 04/12/2007 and MRI brain 02/11/2015. TECHNIQUE: Multiplanar, multisequence MR images were acquired of the cervical spine before and after administration of intravenous contrast. FINDINGS: A faint a small linear T2 hyperintensity is present in the left paramidline mid dimas, the left inferior dimas and in the left medial cerebellum. On the proton density sequence, there may be m ore extensive patchy proton density signal in the dimas and brain stem. Brain MRI could better define the anatomy. The craniocervical junction is normal and the cervical cord has normal signal intensit y. There is no abnormal leptomeningeal contrast enhancement. There is minor mid cervical dextroscol iosis and straightening of the usual cervical lordosis. The cervical vertebra are normal in height a nd intrinsic bone marrow signal. There are no paravertebral masses. Visualized lung apices are clear. C2-3: There is a minor posterior disc bulge without central canal stenosis. Neural foramina are pa tent. C3-4 there is a mild disc bulge that effaces the ventral thecal sac without central canal stenosis. Neural foramina are patent. C4-5: There is a minor disc bulge without central canal stenosis. Neural foramina are patent. C5-6: There is a minor left posterior disc bulge without central canal stenosis. Neural foramina ar e patent. There is a minor posterior disc bulge that there is a mild disc bulge. C7-T1: The intervertebral disc is normal. IMPRESSION: 1. Minor cervical degenerative spondylosis without spinal stenosis. 2. Faint T2 hyperintensities are present in the brain stem and left cerebellum. These are more exte nsive on the proton density sequence and brain MRI may be helpful to further define the anatomy.
--- NOTE | 2017-12-20 23:16 | MRI ---
EXAM: Thoracic spine MRI without and with contrast. HISTORY: Multiple sclerosis. Back pain. COMPARISON: Thoracic spine MRI 02/19/2015. TECHNIQUE: Multiplanar, multisequence MR images were acquired of the thoracic spine before and after administration of contrast. FINDINGS: The thoracic cord has normal signal intensity and ends at the top of L1. There is no abno rmal leptomeningeal contrast enhancement and no syrinx. 12 rib-bearing thoracic vertebra are present . There is stable mild 15 degrees thoracic dextroscoliosis centered at T5-6 and minor compensatory t horacolumbar levoscoliosis centered at T11-12. The thoracic vertebra are generally normal in height and intrinsic bone marrow signal. There is ventral spondylosis at T11-12 with mild modic type 2 endp late changes. Partial disc dessication is present from T4-5 to T6-7. There are no paravertebral mas ses. The partially visualized liver, spleen and kidneys are unremarkable. There are no paravertebra l masses. T1-2: The intervertebral disc is normal. T2-3: The intervertebral disc is normal. Mild right hypertrophic facet arthropathy is present with mild right neural foraminal stenosis. T3-4: The intervertebral disc is normal. There is no central canal stenosis or foraminal stenosis. T4-5, T5-6: The intervertebral discs are normal. There is mild left foraminal stenosis. T6-7, T7-8: The intervertebral discs are normal. There is mild right foraminal stenosis. T8-9: The intervertebral disc is normal. Left facet hypertrophy is present and there is mild left f oraminal stenosis. T9-10, T10-11: The intervertebral discs are normal. There is mild bilateral facet and ligamentum fl avum hypertrophy without central canal stenosis or foraminal stenosis. T11-12: There is a minor disc bulge with ventral spondylosis. There is no central canal stenosis. Left hypertrophic facet arthropathy is present without foraminal stenosis. T12-L1: The intervertebral disc is normal. IMPRESSION: 1. Stable mild S-shaped thoracolumbar scoliosis. 2. No change minor thoracic degenerative spondylosis and facet arthropathy. 3. No thoracic disc herniations, central canal stenosis or high-grade foraminal stenosis. 4. No abnormal T2 hyperintensities or enhancement is present in the thoracic cord.
--- NOTE | 2017-12-20 23:22 | MRI ---
EXAM: Lumbar spine MRI with and without contrast. HISTORY: Multiple sclerosis. Back pain. COMPARISON: Lumbar spine radiographs 09/19/2015 and lumbar spine MRI 02/11/2015. TECHNIQUE: Multiplanar, multisequence MR images were acquired lumbar spine before and after administ ration of intravenous contrast. FINDINGS: The conus medullaris ends at L1 and has normal morphology and signal intensity. There is no abnormal leptomeningeal contrast enhancement. Five non-rib bearing lumbar vertebra are present. There is mild accentuation of the usual lumbar lordosis. The lumbar vertebra are normal in height an d intrinsic bone marrow signal. Ventral spondylosis is present at T11-12 with focal modic type 2 ant erior endplate changes. The kidneys are unremarkable. There are no paravertebral masses. L1-2: The intervertebral disc is normal. L2-3: The intervertebral disc is normal. L3-4: The intervertebral disc is normal. There is mild bilateral facet arthropathy and ligamentum f lavum hypertrophy. This causes minor bilateral foraminal stenosis. There is no central canal stenos is. L4-5: There is a mild disc bulge and bilateral facet arthropathy and ligamentum flavum hypertrophy, greater on the left. This causes mild bilateral foraminal stenosis. There is no central canal steno sis. L5-S1: There is a minor posterior disc bulge and minor bilateral facet arthropathy. There is mild b ilateral foraminal stenosis. IMPRESSION: 1. No change minor lumbar degenerative spondylosis and facet arthropathy. 2. No lumbar disc herniation, pars interarticularis defects or central canal stenosis.
== END 2017-12-20 11:05 | disposition home or self-care (01) ==
LOC: RAD 11:04
PROVIDERS: ATTEND Internal Medicine Rheumatology
DX: M54.2 Cervicalgia (principal); M54.5 Low back pain; M54.9 Dorsalgia, unspecified; G35 Multiple sclerosis
CPT/HCPCS: 36415; 82565

== ENCOUNTER 2018-01-03 23:16 | Outpatient (CLI) ==
[2012-10-05 13:07] VITALS: TEMP 98.7
== END 2018-01-03 23:39 | disposition short-term general hospital (02) ==
LOC: AMBL 23:16
PROVIDERS: ATTEND Family Medicine
DX: R45.851 Suicidal ideations (principal); R40.4 Transient alteration of awareness; F32.9 Major depressive disorder, single episode, unspecified; G35 Multiple sclerosis; M32.9 Systemic lupus erythematosus, unspecified; M79.7 Fibromyalgia

== ENCOUNTER 2018-01-14 22:06 | Emergency (ER) | payer OTHER ==
[2018-01-14 22:26] VITALS: BP 120/74; TEMP 97.8; BMI 31.6
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
== END 2018-01-15 00:32 | disposition home or self-care (01) ==
LOC: ED 22:06
DX: F32.0 Major depressive disorder, single episode, mild (principal); F17.210 Nicotine dependence, cigarettes, uncomplicated; E78.5 Hyperlipidemia, unspecified; I10 Essential (primary) hypertension; G89.29 Other chronic pain; G35 Multiple sclerosis; M32.9 Systemic lupus erythematosus, unspecified; Z79.899 Other long term (current) drug therapy
CPT/HCPCS: 36415; 80053; 80306; 80307; 81001; 85025; 99283

== ENCOUNTER 2018-02-01 09:47 | Outpatient (CLI) ==
[2012-10-05 13:07] VITALS: TEMP 98.7
== END 2018-02-01 09:48 | disposition home or self-care (01) ==
LOC: LAB 09:47
DX: Z79.899 Other long term (current) drug therapy (principal)
CPT/HCPCS: 36415; 80306; 82542

== ENCOUNTER 2018-05-25 15:49 | Outpatient (CLI) | payer OTHER ==
[2012-10-05 13:07] VITALS: TEMP 98.7
== END 2018-05-25 15:50 | disposition home or self-care (01) ==
LOC: RHC-LAB 15:49 → FCC-LAB 15:50
PROVIDERS: ATTEND Nurse Practitioner Family
DX: R50.9 Fever, unspecified (principal); R51 Headache; R11.0 Nausea
CPT/HCPCS: 87502

== ENCOUNTER 2018-06-09 15:46 | Outpatient (CLI) ==
[2012-10-05 13:07] VITALS: TEMP 98.7
[2018-05-25 15:50] VITALS: BMI 31.6
== END 2018-06-09 15:47 | disposition home or self-care (01) ==
LOC: RHC-LAB 15:46 → FCC-LAB 15:47
PROVIDERS: ATTEND Nurse Practitioner Family
DX: R05 Cough (principal)
CPT/HCPCS: 87502

== ENCOUNTER 2018-06-14 16:09 | Emergency (ER) | payer OTHER ==
[2018-06-14 16:15] VITALS: BP 160/107; TEMP 98.8; BMI 33.0
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
--- NOTE | 2018-06-14 20:39 | CT ---
EXAM: CT scan abdomen pelvis without contrast HISTORY: Abdominal pain, lap band problem COMPARISON: CT scan abdomen pelvis 10/11/2017 FINDINGS: Contiguous axial images obtained through the abdomen pelvis without contrast utilizing 3-m m ablation. Sagittal and coronal reconstructions were imaged and reviewed.. The visualized lung bas es are clear. The gallbladder is fluid filled without cholelithiasis. The liver, pancreas, spleen a nd adrenal glands have normal unenhanced CT appearance. There has been prior lap band procedure.. P ostoperative changes are seen in relation to the stomach with prominent proximal small bowel loops w hich may related to ileus and/or gastroenteritis.. There is no evidence of free fluid or inflammator y changes. The bladder is small volumed limiting evaluation IMPRESSION: Prominent small bowel which may be related to ileus versus gastroenteritis suggest follow-up plain fi lm examination to exclude early obstructive changes. Postoperative changes as described. Stable lap band device.
== END 2018-06-14 21:45 | disposition home or self-care (01) ==
LOC: ED 16:09
DX: K52.9 Noninfective gastroenteritis and colitis, unspecified (principal); Z98.84 Bariatric surgery status; F17.210 Nicotine dependence, cigarettes, uncomplicated
CPT/HCPCS: 99283

== ENCOUNTER 2018-06-26 08:51 | Emergency (ER) | payer OTHER ==
[2018-06-26 08:56] VITALS: BP 146/94; TEMP 98.9; BMI 32.7
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
[2018-06-26] MEDS ORDERED: DILAUDID 1 MG/ML SYRINGE IM STA (10:36)
[2018-06-26] MEDS ORDERED: BACLOFEN PO STA (10:37)
== END 2018-06-26 12:05 | disposition home or self-care (01) ==
LOC: ED 08:51
DX: G35 Multiple sclerosis (principal); M32.9 Systemic lupus erythematosus, unspecified; M79.10 Myalgia, unspecified site; F17.210 Nicotine dependence, cigarettes, uncomplicated; Z79.899 Other long term (current) drug therapy
CPT/HCPCS: 36415; 80053; 80306; 81001; 82550; 82553; 83735; 84443; 85025; 85651; 86038; 86140; 86430; 87502; 93005; 93010; 96372; 99283

== ENCOUNTER 2018-07-06 09:04 | Outpatient (CLI) ==
[2012-10-05 13:07] VITALS: TEMP 98.7
--- NOTE | 2018-07-06 11:27 | MRI ---
EXAM: MRI left knee without contrast. HISTORY: Left knee pain. No known injury. Multiple sclerosis recent possible flare-up/tremors. No left knee surgery reported.. TECHNIQUE: Using a local extremity coil on a high field strength magnet multiplanar multisequence MR I was performed of the left knee without intravenous or intra-articular gadolinium contrast. FINDINGS: I have reviewed the patient's two-view plain film examination left knee 09/13/2017 which a re within normal limit. Within the medial compartment there is some changing slope along the superior articulating surface/in ner margin posterior horn compatible with tear. Directly adjacent 11 mm wide by 16 mm AP area of rich nt centered chondrosis with some cartilage ulceration. No underlying subchondral edema. Early produ ctive osteophyte formation. Within the lateral compartment the lateral meniscus is intact without discrete surfacing meniscal tea r. The lateral compartment cartilage congruent without focal underlying subchondral edema. Early pr oductive osteophyte formation. Within the patellofemoral compartment the patella seated.. Patellar chondrosis/chondromalacia patell a with approximate 21 mm wide by 17 mm craniocaudad area of cartilage attenuation/ulceration and unde rlying subchondral remodeling/cyst formation centered over the median ridge. Some mild chondrosis ov er the central trochlear groove. Early productive osteophyte formation. Trace left effusion. No large osteochondral loose bodies. Intact ACL and PCL ligamentous fibers. T he extensor mechanism is intact. The medial collateral ligament as well as lateral collateral ligame nt complex and posterolateral corner intact. Trace posterior joint extension/popliteal cyst.. IMPRESSION: Changing slope along the superior articulating surface/inner margin posterior horn media l meniscus compatible with tear. Directly adjacent 11 x 16 mm area of joint centered chondrosis with some cartilage ulceration. No discrete surfacing lateral meniscal tear identified. Early tricompartmental productive osteophyte formation. Marked patellar chondrosis/chondromalacia pa tella. Trace left effusion. Trace posterior joint extension/popliteal cyst. Intact cruciate and collateral ligaments.
--- NOTE | 2018-07-06 11:50 | MRI ---
EXAM: MRI brain without and with IV contrast. DATE: 07/06/2018. HISTORY: Multiple sclerosis. Recent flare-up of tremors. TECHNIQUE: Sagittal T1W postcontrast, axial T2W, axial FLAIR, axial T1W pre and postcontrast, axial DWI, coronal T1W postcontrast, and sagital FLAIR sequences of the brain were obtained using 1.5 Yvonne magnet. CONTRAST: Dotarem - 17 ml IV. COMPARISON: CT head five May 2017. MRI brain 02/11/2015. FINDINGS: The left lateral ventricle, fourth ventricle, some cerebellar sulci, many cerebral sulci ( especially parietal lobes) and subarachnoid spaces overlying the superior vertex of the brain are mil dly prominent due to involutional change. No midline shift, herniation or loculated fluid collection is apparent. No acute infarct, hemorrhage or enhancing neoplasm is identified. No abnormal contras t enhancement is identified in the brain, meninges or dura. Mildly prominent Virchow-Jorge spaces ar e observed at the inferior aspect of each basal ganglia. Minimal T2W/FLAIR hyperintensity is observe d in the white matter abutting each lateral ventricle. A small number of T2W/FLAIR bright, non-enhan cing foci scattered within the sebastian radiata, centrum semiovale, and subcortical white matter of bot h cerebral hemispheres, similar to the January 2015. Several of these lesions are oblong in configur ation and oriented perpendicular to the corpus callosum. Minor shine through artifact is identified on DWI images from a right frontal lobe lesion on axial image #18 and left frontal lesion on axial im age #17. The rowan - white matter differentiation is normal. No migration or diverticulation abnorma lity is identified. The amygdala, hippocampus, and parahippocampal gyri are symmetric and normal wei aterally. The 7th/8th cranial nerve complexes, cerebellopontine angles, brainstem, and visible cervi leisa spinal cord are normal. There is no cerebellar tonsillar ectopia. The pituitary gland is normal in size and has normal signal. Corpus callosum is normal in size and configuration. Vertebral and basilar arteries are small in size. Flow voids are present in the major intracranial arteries and in the dural venous sinuses. No aneurysm, AVM or dural venous sinus thrombosis is apparent. No orbit abnormality is identified. The mastoid air cells are unremarkable. Frontal sinuses are hypoplastic. There is minor mucosal thickening within multiple ethmoid air cells. No neck mass or lymphadenopat hy is detected. Moderate/marked thickening of the inner table of the frontal bone appears benign. T here are dural calcifications overlying the superior vertex of the brain, and demonstrate T2W GRE quinten ck signal. No calvarial neoplasm or acute fracture is evident. IMPRESSIONS: 1. No acute infarct, hemorrhage, enhancing neoplasm or hydrocephalus. 2. 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 No definitive new lesions are identified. Shine through DWI artifacts are visible at 2 lesions. DDX: Multiple sclerosis is a str taisha consideration. Vasculitis, small vessel disease, sequela of infection, sequela of migraine heada ches may also be considered. 3. Small vertebral and basilar arteries - correlate for vertebrobasilar insufficiency symptoms. 4. Moderate, benign hyperostosis frontalis interna. 5. Minor bilateral ethmoid air cell mucosal disease.
== END 2018-07-06 09:05 | disposition home or self-care (01) ==
LOC: RAD 09:04
PROVIDERS: ATTEND Internal Medicine Rheumatology
DX: G35 Multiple sclerosis (principal); M25.562 Pain in left knee

== ENCOUNTER 2018-09-02 05:17 | Emergency (ER) | payer OTHER ==
[2018-09-02 05:31] VITALS: BMI 32.8
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
[2018-09-02 06:14] LABS: URINE PREGNANCY TEST NEGATIVE (NEGATIVE)
[2018-09-02 11:15] VITALS: BP 128/86; TEMP 98.8
== END 2018-09-02 11:12 | disposition short-term general hospital (02) ==
LOC: ED 05:17
DX: H46.9 Unspecified optic neuritis (principal); G35 Multiple sclerosis; M32.9 Systemic lupus erythematosus, unspecified; F17.210 Nicotine dependence, cigarettes, uncomplicated; R10.9 Unspecified abdominal pain; E78.5 Hyperlipidemia, unspecified; I10 Essential (primary) hypertension; Z79.899 Other long term (current) drug therapy
CPT/HCPCS: 36415; 80053; 81001; 81025; 85025; 85651; 99285

== ENCOUNTER 2018-09-02 11:20 | Outpatient (CLI) ==
[2012-10-05 13:07] VITALS: TEMP 98.7
[2018-09-02 05:31] VITALS: BMI 32.8
== END 2018-09-02 11:41 | disposition short-term general hospital (02) ==
LOC: AMBL 11:20
PROVIDERS: ATTEND Family Medicine
DX: H46.9 Unspecified optic neuritis (principal); H54.62 Unqualified visual loss, left eye, normal vision right eye; G35 Multiple sclerosis; M32.9 Systemic lupus erythematosus, unspecified

== ENCOUNTER 2018-09-11 12:21 | Outpatient (CLI) ==
[2012-10-05 13:07] VITALS: TEMP 98.7
== END 2018-09-11 12:41 | disposition short-term general hospital (02) ==
LOC: AMBL 12:21
PROVIDERS: ATTEND Emergency Medicine
DX: R07.1 Chest pain on breathing (principal); R05 Cough; M79.601 Pain in right arm

== ENCOUNTER 2018-12-09 09:40 | Outpatient (CLI) ==
[2012-10-05 13:07] VITALS: TEMP 98.7
[2018-12-09 10:03] VITALS: BMI 35.2
== END 2018-12-09 09:44 | disposition critical access hospital (66) ==
LOC: AMBL 09:40
PROVIDERS: ATTEND Internal Medicine
DX: R20.0 Anesthesia of skin (principal); R25.2 Cramp and spasm; S99.919A Unspecified injury of unspecified ankle, initial encounter; R32 Unspecified urinary incontinence; M32.9 Systemic lupus erythematosus, unspecified; G35 Multiple sclerosis; I10 Essential (primary) hypertension

== ENCOUNTER 2018-12-09 09:49 | Emergency (ER) ==
[2018-12-09] MEDS ORDERED: MORPHINE 2 MG/ML SYRINGE IVP STA (09:53)
[2018-12-09] MEDS ORDERED: ZOFRAN 4 MG/2 ML IM STA (09:54)
[2018-12-09] MEDS ORDERED: MORPHINE 2 MG/ML SYRINGE IM STA (09:54)
[2018-12-09 10:03] VITALS: BP 147/97; TEMP 97.5; BMI 35.2
--- NOTE | 2018-12-09 10:33 | DI ---
Exam: Two views of the chest. Comparison: 05/31/2017. Reason for exam: Cough. FINDINGS: No pneumothorax, pleural effusion, or focal consolidation. The cardiac silhouette is not enlarged. The imaged osseous structures appear grossly unremarkable without acute fracture. Impression: No acute cardiopulmonary process.
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
== END 2018-12-09 12:29 | disposition home or self-care (01) ==
LOC: ED 09:49
DX: R52 Pain, unspecified (principal); M32.9 Systemic lupus erythematosus, unspecified; F17.210 Nicotine dependence, cigarettes, uncomplicated; R25.2 Cramp and spasm; E78.5 Hyperlipidemia, unspecified; I10 Essential (primary) hypertension; Z79.899 Other long term (current) drug therapy; Z98.84 Bariatric surgery status
CPT/HCPCS: 36415; 80053; 81001; 83735; 85025; 93005; 93010; 96372; 99283

== ENCOUNTER 2018-12-28 14:02 | Outpatient (CLI) | payer OTHER ==
[2012-10-05 13:07] VITALS: TEMP 98.7
--- NOTE | 2018-12-28 16:19 | MRI ---
EXAM: MRI of the pelvis without contrast COMPARISON: CT of the abdomen and pelvis 06/14/2018. HISTORY: Bilateral hip pain. TECHNIQUE: Multiplanar noncontrast MR images of the pelvis/bilateral hips were acquired using a 1.2 Yvonne magnet. The submitted images are moderately limited by a patient motion and artifact. FINDINGS: No recent radiographs of the pelvis/hips available for comparison and radiographic correla tion is recommended. There is no evidence of an acute fracture, osteomyelitis or osteonecrosis. There is some exaggerated lumbar lordosis. There is marrow edema involving the fourth and fifth sacral segments which may rep resent stress reaction or contusion without a definite fracture. There is edema and ill-defined flui d posteriorly at the level of the lumbosacral spine without a discrete soft tissue ulcer or definite drainable fluid collection. Edema and minimal fluid in a presacral location, nonspecific. Moderate degenerative spurring of the pubic symphysis. Moderate degenerative changes of the sacroili ac joints without evidence of active sacroiliitis or ankylosis. Mild to moderate degenerative change s of the hips bilaterally with physiologic amount of fluid throughout the hip joints. No evidence of greater trochanteric bursitis. No full-thickness tendon tear or tendon retraction. Mild hamstring tendinosis bilaterally. No soft tissue mass identified within the pelvis. There is deviation of the uterine fundus into the right joanna pelvis. IMPRESSION: 1. Marrow edema involving the lower sacral segments which may represent stress reaction or contusion without a definite fracture. Edema and ill-defined fluid throughout the overlying subcutaneous tiss ues as well as within the immediately overlying presacral soft tissues without a focal drainable flui d collection. No discrete soft tissue ulcer to suggest infection/osteomyelitis. Correlate clinicall y and consider short-term follow-up MRI with and without contrast utilizing sacrum protocol. 2. Mild to moderate degenerative changes as described. 3. Hamstring tendinosis without a full-thickness tendon tear. 4. Exaggerated lumbar lordosis.
--- NOTE | 2018-12-29 08:06 | DI ---
EXAM: Three views of the left hand. History: Left hand pain. Findings: No acute fracture or dislocation. Moderate to severe narrowing of the first carpal metaca rpal joint with marginal sclerosis and osteophyte formation. Joint spaces are otherwise relatively p reserved. No abnormal calcifications or radiopaque foreign bodies. Impression: 1. No acute osseous abnormality. 2. 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
== END 2018-12-28 14:03 | disposition home or self-care (01) ==
LOC: RAD 14:02
PROVIDERS: ATTEND Nurse Practitioner Family
DX: M25.551 Pain in right hip (principal); M25.552 Pain in left hip; R20.0 Anesthesia of skin; M32.9 Systemic lupus erythematosus, unspecified; G35 Multiple sclerosis; M79.645 Pain in left finger(s)

== ENCOUNTER 2023-09-20 22:42 | Observation (INO) ==
[2023-09-20 23:27] LABS: BASOPHILS % (AUTO) 0.3 % (0.0-3.0); EOSINOPHILS % (AUTO) 0.3 % (0.0-7.0); HEMOGLOBIN 11.4 g/dl (12.0-16.0); IMMATURE GRANULOCYTE % (AUTO) 0.3 % (0.0-5.0); LYMPHOCYTES # (AUTO) 1.3 K/uL (0.60-3.4); LYMPHOCYTES % (AUTO) 45.2 (10.0-50.0); MEAN CORPUSCULAR HEMOGLOBIN 30.3 pg (27.0-31.0); MEAN CORPUSCULAR HGB CONC 33.5 (31.8-35.4); MEAN CORPUSCULAR VOLUME 90.4 fl (81.0-99.0); MONOCYTES # (AUTO) 0.2 K/uL (0.4-2.0); MONOCYTES % (AUTO) 8.2 (0-10); NEUTROPHILS # (AUTO) 1.3 K/ul (2.0-6.9); NEUTROPHILS % (AUTO) 45.7 % (42.2-75.2); PLATELET COUNT 195 10^3/uL (140-440); RDW COEFFICIENT OF VARIATION 13.8 % (11.6-14.8); RED BLOOD COUNT 3.76 10^6/ul (4.20-5.40); WHITE BLOOD COUNT 2.94 K/ul (4.6-10.2)
[2023-09-20] MEDS ORDERED: MORPHINE 2 MG/ML SYRINGE IVP ONE (23:34)
[2023-09-20 23:39] LABS: ALANINE AMINOTRANSFERASE 15.5 U/L (0-35); ALBUMIN 3.08 g/dL (3.5-5.0); ASPARTATE AMINO TRANSFERASE 39.8 U/L (14-36); BILIRUBIN,TOTAL 0.27 mg/dL (0.2-1.3); BLOOD UREA NITROGEN 7.7 mg/dL (7-17); CALCIUM 8.11 mg/dL (8.4-10.2); CARBON DIOXIDE 26.2 mmol/L (22-30.0); CHLORIDE 98.1 mmol/L (98-107); CREATININE 0.61 mg/dL (0.60-1.30); GLUCOSE 79.4 mg/dL (74-106); POTASSIUM 3.62 mmol/L (3.5-5.1); SODIUM 126.6 mmol/L (134.5-145); TOTAL PROTEIN 7.43 g/dL (6.3-8.2)
[2023-09-20] MEDS: ASPIRIN CHEWABLE PO STA (23:46)
[2023-09-20] MEDS: MORPHINE 2 MG/ML SYRINGE IVP ONE (23:47)
[2023-09-20] MEDS: MORPHINE 2 MG/ML SYRINGE IM ONE (23:47)
[2023-09-20 23:49] LABS: SARS COV-2 RNA RAPID NAAT NEGATIVE (NEGATIVE)
[2023-09-20 23:56] LABS: TROPONIN I < 0.012 ng/ml (0.0000-0.120)
--- NOTE | 2023-09-21 00:11 | DI ---
EXAM: CHEST, ONE-VIEW HISTORY: Chest Pain FINDINGS: Cardiac and mediastinal contours are normal. Pulmonary vasculature is normal. Lungs are clear. No acute chest wall abnormality. Right approach Port-A-Cath. IMPRESSION: No acute cardiopulmonary disease
[2023-09-21] MEDS: SODIUM CHLORIDE 1,000 ML IV ONE (00:43)
--- NOTE | 2023-09-21 01:40 | ED.PDOC ---
General ED Provider: Dr. SULY SPARROW MD Chief Complaint: Chest Pain Stated Complaint: 47 yo female with hx of SLE, AR coming to the ER for chest pain. Patient reports that the pain started 3 days ago, non exertional, pressure like, retrosternal radiating to the back with no aggravating or alleviating factors. Patient had AR 2 years ago, last stress test was one year ago with Dr. Llanes. No diaphoresis or nausea. Patient reports that she is getting intravenous immunoglobulins for her systemic lupus once a week but last week she had to get it once a day due to a flareup of her lupus when she was also on a course of steroids. Otherwise the patient denies any headache, shortness of breath, nausea, vomiting, changes in bowel or urine Time Seen by Provider: 09/20/23 22:50 Information Source: Patient Primary Care Provider: TANVIR STEWART APRN Nursing and Triage Documentation Reviewed and Agree: Yes What is Opioid Naive?: *Opioid Naive implies the patient is not already taking opioids or not chronically receiving opioids on a daily basis. *PRN dosing is not "usually" associated with tolerance. *Patients are at higher risk of over-sedation and aspiration. What is Opioid Tolerant?: *Opioid Tolerance implies less than the expected response to an opioid. *Acquired tolerance is defined by the patient taking 60mg of oral morphine daily (or equianalgesic dose of another opioid) for 1 week or more. *Often associated with chronic pain. *May take more than usual dose to achieve desired pain control. Review of Systems Review Of Systems Constitutional: Reports No symptoms All Other Systems: Reviewed and Negative [facility] Medical History Hernia of abdominal wall K43.9 - Ventral hernia without obstruction or gangrene (ICD-10) Long-term current use of intravenous immunoglobulin (IVIG) Z79.899 - Other penitentiary (current) drug therapy (ICD-10) Heart attack I21.9 - Acute myocardial infarction, unspecified (ICD-10) Schizophrenia F20.9 - Schizophrenia, unspecified (ICD-10) Bipolar disorder F31.9 - Bipolar disorder, unspecified (ICD-10) Optic neuropathy H46.9 - Unspecified optic neuritis (ICD-10) Lupus M32.9 - Systemic lupus erythematosus, unspecified (ICD-10) Family History Mother Breast cancer, left Breast cancer, right FATHER Cancer prostate BROTHER Cancer prostate Social History Smoking and tobacco status: Current every day smoker Tobacco: How many years used: 25 Second hand smoke exposure: Yes Alcohol intake: current Alcohol intake frequency: holidays/special occasions only Counseling given: No Substance use type: marijuana Counseling given: Yes Counseling provided: provider counseling and other Details: counseled on risks of continued marijuana use, especially with benzo Rx Christine/faith: Orthodoxy Special christine needs: No Agree to transfusion: Yes Adopted: No Caregiver/support person: Yes Household members: children Housing: house Marital status: D Number of children: 3 Highest education level completed: high school graduate Financial difficulty paying for basics: not applicable service: No Current occupational status: disabled Current occupational exposures/hazards: No Pets and animals: Yes Leisure activites: other History of recent travel: No Sexually active: No Do you think of yourself as: straight/heterosexual Current gender identity: female Seatbelt use: always Helmet use: No (N/a) Drives intoxicated or rides with intoxicated rolloff driver: No Water heater temperature set < 120 degrees: Yes Working smoke detector in home: Yes Fire extinguisher in home: Yes Carbon monoxide detector in home: Yes Firearms in home: No Surgical History Status post placement of arteriovenous graft Z95.828 - Presence of other vascular implants and grafts (ICD-10) H/O: hysterectomy November 2020 Total Z90.710 - Acquired absence of both cervix and uterus (ICD-10) History of gynecological procedure exploratory Z98.890 - Other specified postprocedural states (ICD-10) History of gastrointestinal surgery (~2012) Gastric Band Z98.890 - Other specified postprocedural states (ICD-10) History of ear, nose, and throat (ENT) surgery (~2013) Ear lobe repair August 2013 Z98.890 - Other specified postprocedural states (ICD-10) Status post tonsillectomy Z90.89 - Acquired absence of other organs (ICD-10) Nasal septoplasty Status post hernia repair Z98.890 - Other specified postprocedural states (ICD-10) Status post bariatric surgery (~2008) Z98.84 - Bariatric surgery status (ICD-10) Female Reproductive History Menstrual Hx Hysterectomy: Yes Hx Tubal Ligation: No Physical Exam Physical Exam Appearance: Reports Well-appearing Pain Distress: Mild Respiratory: Reports Airway patent, Breath sounds clear, Breath sounds equal and Other (tenderness at costochondral junction) Cardiovascular: Reports RRR, Pulses normal, No rub and No murmur GI/: Reports Soft, Nontender, No masses and Bowel sounds normal Musculoskeletal: Reports Normal strength, ROM intact and Edema (1+ BLE) Skin: Reports Warm and Normal color Neurological: Reports Sensation intact and Motor intact Psychiatric: Reports Affect appropriate Interpretation EKG Interpretation EKG Interpretation By: ED Physician Time of EKG #1: 23:08 Rate: Simon Rhythm: Sinus Ectopy: None [place]: NL Interpretation: no sings of acute ischemia Course Course 09/20/23 23:20 09/20/23 23:20 Orders, Labs, Meds: Lab Review 09/20/23 09/20/23 09/21/23 23:20 23:24 01:35 WBC 2.94 L RBC 3.76 L Hgb 11.4 L Hct 34.0 L MCV 90.4 MCH 30.3 MCHC 33.5 RDW Coeff of Ronit 13.8 Plt Count 195 Immature Gran % (Auto) 0.3 Neut % (Auto) 45.7 Lymph % (Auto) 45.2 Rock % (Auto) 8.2 Eos % (Auto) 0.3 Baso % (Auto) 0.3 Neut # (Auto) 1.3 L Lymph # (Auto) 1.3 Rock # (Auto) 0.2 L Eos # (Auto) 0.0 Baso # (Auto) 0.0 Immature Gran # (Auto) 0.0 Sodium 126.6 L Potassium 3.62 Chloride 98.1 Carbon Dioxide 26.2 Anion Gap 5.92 BUN 7.7 Creatinine 0.61 Estimated GFR (MDRD) 128.00 BUN/Creatinine Ratio 12.62 Glucose 79.4 Calcium 8.11 L Total Bilirubin 0.27 AST 39.8 H ALT 15.5 Alkaline Phosphatase 53.0 Troponin I < 0.012 < 0.012 NT-Pro-B Natriuret Pep 150 Total Protein 7.43 Albumin 3.08 L Globulin 4.35 Albumin/Globulin Ratio 0.70 D-Dimer 753.56 H SARS CoV-2 RNA Rapid RAVINDER Negative Orders Category Date Time Status ADMIT OBSERVATION [PLACE PATIENT OBSERVATION] .TO ADMISSION 09/21/23 02:16 Ordered MEDSURG (MONITORED BED) EKG-(ED ONLY) Stat CARDIO 09/20/23 23:05 Completed NPO REMINDER: IMAGING ONCE CARE 09/21/23 01:12 Active TELEMETRY MONITORING TELE CARE 09/21/23 02:17 Ordered ED IMPLEMENTATION SPECIALIST PAYROLL APPLIED .ONCE EMERGENCY 09/20/23 23:04 Active BMP [BASIC METABOLIC PANEL] Stat LAB 09/21/23 07:16 Ordered CBC W/ AUTO DIFF Stat LAB 09/20/23 23:20 Completed COMPREHENSIVE METABOLIC PANEL Stat LAB 09/20/23 23:20 Completed D-DIMER Stat LAB 09/20/23 23:20 Completed NT-PROBNP(ED) Stat LAB 09/20/23 23:20 Completed SARS COV-2 RNA RAPID RAVINDER Stat LAB 09/20/23 23:24 Completed TROPONIN I Stat LAB 09/20/23 23:20 Completed TROPONIN I Stat LAB 09/21/23 01:35 Completed TROPONIN I Stat LAB 09/21/23 07:16 Ordered Aspirin [Aspirin Chewable] Meds 09/20/23 23:34 Discontinued 324 mg PO ONCE STA Morphine Sulfate [Morphine 2 mg/ml Syringe] Meds 09/20/23 23:42 Discontinued 2 mg IM ONCE ONE Morphine Sulfate [Morphine 2 mg/ml Syringe] Meds 09/20/23 23:36 Discontinued 2 mg IVP ONCE ONE Sodium Chloride 0.9% [Sodium Chloride] 1,000 ml Meds 09/21/23 00:06 Active IV 100 mls/hr CHEST, 1V AP ONLY Stat RADS 09/20/23 23:04 Completed CTA CHEST PE PROTOCOL Stat RADS 09/21/23 01:12 Completed Medications Generic Name Dose Route Start Last Admin Trade Name Freq PRN Reason Stop Dose Admin Sodium Chloride 1,000 mls @ 100 mls/hr 09/21/23 00:06 09/21/23 00:43 Sodium Chloride IV 09/21/23 10:05 100 mls/hr .Q10H ONE Administration Discontinued Medications Generic Name Dose Route Start Last Admin Trade Name Freq PRN Reason Stop Dose Admin Aspirin 324 mg 09/20/23 23:34 09/20/23 23:46 Aspirin 81 Mg Tab.Chew PO 09/20/23 23:35 324 mg ONCE STA Administration Morphine Sulfate 2 mg 09/20/23 23:36 09/20/23 23:47 Morphine Sulfate 2 Mg/Ml Syringe IVP 09/20/23 23:37 Not Given ONCE ONE Morphine Sulfate 2 mg 09/20/23 23:42 09/20/23 23:47 Morphine Sulfate 2 Mg/Ml Syringe IM 09/20/23 23:43 2 mg ONCE ONE Administration Vital Signs: Temp Pulse Resp BP Pulse Ox 09/20/23 22:46 97.6 F 65 20 120/83 100 Patient was given 324 mg of aspirin and 2 mg of morphine. Troponin negative x 2 chest x-ray as per radiology interpretation no acute intrathoracic abnormality. EKG did not show any acute changes. Patient also has hyponatremia sodium 126 was started on NS 100 mL/h patient will need to be admitted for hyponatremia and cardiology consult called hospitalist on-call Noelle discussed the patient case with her and she agreed to admit the patient under her services for hyponatremia and cardiology consult. Repeat troponin and BMP was ordered at 7 AM as requested by hospitalist. GASTON Risk Score GASTON Risk Score: Risk Score Odds of by 30D 0 0.1 (0.1-0.2) 1 0.3 (0.2-0.3) 2 0.4 (0.3-0.5) 3 0.7 (0.6-0.9) 4 1.2 (1.0-1.5) 5 2.2 (1.9-2.6) 6 3.0 (2.5-3.6) 7 4.8 (3.8-6.1) Physician Progress Note: [] Discharge Plan Discharge Patient Disposition: ADMITTED INPATIENT Discharge Problem: Hyponatremia, Chest pain Prescriptions: No Action (DME) BD Blunt Plastic Cannula 17 x 3 mL syringe 3 sz MC DIRECTED Qty: 3 0RF Rx Instructions: Dispense 3mL syringe with needle. Dispense what her insurance will cover. ferrous sulfate [FeroSul] 325 mg (65 mg iron) tablet See Rx Instructions .ROUTE .COMPLEX Qty: 45 0RF Dose Instruction: TAKE ONE TABLET EVERY OTHER DAY Rx Instructions: TAKE ONE TABLET EVERY OTHER DAY potassium chloride 20 mEq tablet,ER particles/crystals See Rx Instructions .ROUTE .COMPLEX Qty: 90 1RF Dose Instruction: TAKE ONE TABLET DAILY NEEDED Rx Instructions: TAKE ONE TABLET DAILY NEEDED furosemide 20 mg tablet See Rx Instructions .ROUTE .COMPLEX Qty: 30 1RF Dose Instruction: TAKE ONE TABLET DAILY NEEDED FOR LOCALIZED EDEMA Rx Instructions: TAKE ONE TABLET DAILY NEEDED FOR LOCALIZED EDEMA multivitamin 1 CAP capsule 1 cap PO DAILY pantoprazole 40 mg tablet,delayed release (DR/EC) 40 mg PO BID sucralfate 1 gram tablet 1 g PO QID Patient Comments: TAKE 1 TABLET BY MOUTH FOUR TIMES DAILY ondansetron HCl 4 mg tablet 4 mg PO DAILY PRN (Reason: Nausea And Vomiting) Patient Comments: TAKE 1 TABLET BY MOUTH DAILY NEEDED FOR NAUSEA OR VOMITING rizatriptan 10 mg tablet 10 mg PO 1-2XD MDD 2 PRN (Reason: Migraine Headache) Patient Comments: TAKE 1 TABLET BY MOUTH 1 TIME NEEDED FOR MIGRAINE. MAX 2 IN 24 HOURS. MAY REPEAT IN 2 HOURS NEEDED Trintellix 20 mg tablet 20 mg PO DAILY Patient Comments: TAKE 1 TABLET BY MOUTH DAILY alprazolam 0.5 mg tablet 0.5 mg PO BID carisoprodol 350 mg tablet 350 mg PO QID PRN (Reason: muscle pain) Patient Comments: TAKE 1 TABLET BY MOUTH 3 TIMES A DAY NEEDED FOR MUSCLE SPASMS divalproex 500 mg tablet,delayed release (DR/EC) 500 mg PO BID hydrochlorothiazide 12.5 mg tablet 12.5 mg PO DAILY Linzess 145 mcg capsule 145 mcg PO DAILY losartan 100 mg tablet 100 mg PO DAILY mycophenolate mofetil 500 mg tablet 1,500 mg PO BID oxycodone 10 mg tablet 10 mg PO Q6H PRN (Reason: pain) Patient Comments: TAKE 1 TABLET BY MOUTH EVERY 8 HOURS NEEDED FOR PAIN. REDUCE DOSES TAKEN PAIN BECOMES MANAGEABLE. prazosin 5 mg capsule 5 mg PO DAILY Gemtesa 75 mg tablet 75 mg PO DAILY hydroxyzine HCl 50 mg tablet 50 mg PO BID Vraylar 3 mg capsule 3 mg PO DAILY prednisone 5 mg tablet 20 mg PO DAILY [id number] [Fioricet] 50-300-40 mg capsule 1 cap PO TID PRN (Reason: pain) Qty: 50 2RF mecobalamin (vitamin B12) 10,000 mcg recon soln 10,000 mcg IM .[id number] dronabinol 10 mg capsule 10 mg PO TID Rx Instructions: administer before lunch and evening meal/dinner estradiol [Estrace] 1 mg tablet 1 mg PO QDAY Rx Instructions: off 1 week; repeat cycle omeprazole 20 mg capsule,delayed release(DR/EC) 20 mg PO QDAY loratadine 10 mg tablet 10 mg PO DAILY PRN (Reason: Allergy Symptoms) Qty: 90 3RF (DME) Shower chair with back See Rx Instructions .ROUTE .MEDSUPPLY Qty: 1 0RF Rx Instructions: As directed Did you review [place] CARE SUPPORT REPRESENTATIVE for ALL controlled substances?: Not Applicable ED Provider: SULY SPARROW Condition: Stable
--- NOTE | 2023-09-21 02:06 | CT ---
EXAM: CHEST CTA WITH CONTRAST (PULMONARY ARTERY) HISTORY: Chest pain. Elevated D-dimer. TECHNIQUE: CTA acquisition of the chest from the thoracic inlet to the upper abdomen following IV con trast administration timed to filling of the pulmonary artery. 3D/MIP/VR images were utilized. COMPARISON: Chest radiograph 07/16/2023. FINDINGS: Lines, Tubes, Devices: Right chest port catheter tip located at the superior cavoatrial junction. Pulmonary arteries: - Diagnostic quality: Adequate. - Central(Main/Lobar/Interlobar): No embolus. - Peripheral (Segmental/Subsegmental): No embolus. - Right ventricle/Left ventricle ratio (normal <0.9): Normal. - Main pulmonary artery: Normal caliber. Lung Parenchyma, Pleura, and Airways: Central airways are patent. Mild para septal emphysema. Mild de pendent atelectasis in the lower lobes. No pleural effusion. Thoracic Inlet, Mediastinum, and Gaye: Thyroid gland is unremarkable. No lymphadenopathy. Heart, Vessels, and Pericardium: Normal caliber aorta. No visible coronary artery calcifications. No cariomegaly. No pericardial effusion. Bones and Soft Tissues: No acute osseous abnormality. Subcutaneous edema in the chest wall. Mild sco liosis and mild multilevel degenerative spondylosis. Old right rib fractures noted. Upper Abdomen: Postoperative changes at the gastroesophageal junction. IMPRESSION: No pulmonary embolus. Mild paraseptal emphysema. All CT scans are performed using dose optimization techniques as appropriate to the performed exam an d include at least one of the following: Automated exposure control, adjustment of the mA and/or kV according t o size, and the use of iterative reconstruction technique.
[2023-09-21 02:52] VITALS: RESP 16; BMI 27.1
[2023-09-21] MEDS: NICODERM 21 MG TD SCH (04:18)
[2023-09-21 05:24] VITALS: BP 135/90; TEMP 98.1
[2023-09-21 07:34] LABS: CARBON DIOXIDE 28.9 mmol/L (22-30.0); CHLORIDE 102.3 mmol/L (98-107); GLUCOSE 65.7 mg/dL (74-106); POTASSIUM 3.79 mmol/L (3.5-5.1); SODIUM 131.8 mmol/L (134.5-145)
[2023-09-21 07:52] LABS: TROPONIN I < 0.012 ng/ml (0.0000-0.120)
[2023-09-21 07:57] VITALS: PULSE 67
[2023-09-21] MEDS ORDERED: OXYCODONE PO PRN (08:36)
[2023-09-21] MEDS ORDERED: NON-FORMULARY MEDICATION (Ferrous Sulfate [Ferosul] 325 mg (65 mg iron) tablet) SCH (08:45)
[2023-09-21] MEDS ORDERED: PREDNISONE PO SCH (09:00)
[2023-09-21] MEDS ORDERED: NON-FORMULARY MEDICATION (Linaclotide [Linzess] 145 mcg capsule) PO SCH (09:00)
[2023-09-21] MEDS: XANAX PO SCH (09:29)
[2023-09-21] MEDS: ATARAX PO SCH (09:29)
[2023-09-21] MEDS: MINIPRESS PO SCH (09:29)
[2023-09-21] MEDS: COZAAR PO SCH (09:29)
[2023-09-21] MEDS: SOMA PO PRN (09:29)
[2023-09-21] MEDS: AMITIZA PO SCH (09:30)
[2023-09-21] MEDS: DEPAKOTE PO SCH (09:30)
[2023-09-21] MEDS: NON-FORMULARY MEDICATION (Cariprazine [Vraylar] 3 mg capsule) PO SCH (09:30)
[2023-09-21] MEDS: DRONABINOL 10 MG PO SCH (09:31)
[2023-09-21] MEDS: VIBEGRON 75 MG PO SCH (09:33)
[2023-09-21] MEDS: PROTONIX PO SCH (09:35)
[2023-09-21] MEDS: PREDNISONE PO SCH (09:35)
[2023-09-21] MEDS: CARAFATE PO SCH (09:35)
[2023-09-21] MEDS: FERROUS SULFATE PO SCH (09:35)
--- NOTE | 2023-09-21 09:40 | PCM.SS ---
Provider Provider: ANTONELLA CRAMER PA-C, [facility] Admission Date Admission Date: 09/21/23 Discharge Date Discharge Date: 09/21/23 Primary Care Physician Primary Care Physician: TANVIR STEWART APRN Chief Complaint Reason For Visit: HYPONATRENIA/CHEST PAIN History of Present Illness History of Present Illness: Admitted 09/21/23 02:24, this 47 year old AA/BLACK/F who presented to the ER with three day history of reproducible chest pain anteriorly. She states she hasn't done any unusual activity. She was worried due to having a history of [place]. She has lupus and MS and is currently getting IVIG and steroids for a flare up, per the patient. She states it is difficult for her to tell between her lupus pain and other types of pain sometimes. She states this feels like pleurisy to her, hurts with deep breaths. In the ER she had unremarkable EKG, negative trops x2. CTA chest unremarkable. Na noted to be 126. She was admitted to med surg and started on NS fluids and trended troponin. Upon further review patient has chronic hx of hyponatremia. She takes multiple psych medications and hctz. She states she is feeling better today with her sodium improved to almost 132. Discussed stopping hctz to see if it would help, would like to avoid altering her psych medications as her mood has been stable. She is agreeable to this. She states that she has had a stress test and echo at [facility] within the past year with her on air personality, for whom she sees in the next couple weeks. She is requesting discharge. [facility] Medical History Hernia of abdominal wall K43.9 - Ventral hernia without obstruction or gangrene (ICD-10) Long-term current use of intravenous immunoglobulin (IVIG) Z79.899 - Other residential (current) drug therapy (ICD-10) Heart attack I21.9 - Acute myocardial infarction, unspecified (ICD-10) Schizophrenia F20.9 - Schizophrenia, unspecified (ICD-10) Bipolar disorder F31.9 - Bipolar disorder, unspecified (ICD-10) Optic neuropathy H46.9 - Unspecified optic neuritis (ICD-10) Lupus M32.9 - Systemic lupus erythematosus, unspecified (ICD-10) Surgical History Status post placement of arteriovenous graft Z95.828 - Presence of other vascular implants and grafts (ICD-10) H/O: hysterectomy November 2020 Total Z90.710 - Acquired absence of both cervix and uterus (ICD-10) History of gynecological procedure exploratory Z98.890 - Other specified postprocedural states (ICD-10) History of gastrointestinal surgery (~2012) Gastric Band Z98.890 - Other specified postprocedural states (ICD-10) History of ear, nose, and throat (ENT) surgery (~2013) Ear lobe repair August 2013 Z98.890 - Other specified postprocedural states (ICD-10) Status post tonsillectomy Z90.89 - Acquired absence of other organs (ICD-10) Nasal septoplasty Status post hernia repair Z98.890 - Other specified postprocedural states (ICD-10) Status post bariatric surgery (~2008) Z98.84 - Bariatric surgery status (ICD-10) Family History Mother Breast cancer, left Breast cancer, right FATHER Cancer prostate BROTHER Cancer prostate Social History Smoking and tobacco status: Current every day smoker Tobacco: How many years used: 25 Second hand smoke exposure: Yes Alcohol intake: current Alcohol intake frequency: holidays/special occasions only Counseling given: No Substance use type: marijuana Counseling given: Yes Counseling provided: provider counseling and other Details: counseled on risks of continued marijuana use, especially with benzo Rx Christine/anabaptism: L[employer] Day Special christine needs: No Agree to transfusion: Yes Adopted: No Caregiver/support person: Yes Household members: children Housing: house Marital status: D Number of children: 3 Highest education level completed: high school graduate Financial difficulty paying for basics: not applicable service: No Current occupational status: disabled Current occupational exposures/hazards: No Pets and animals: Yes Leisure activites: other History of recent travel: No Sexually active: No Do you think of yourself as: straight/heterosexual Current gender identity: female Seatbelt use: always Helmet use: No (N/a) Drives intoxicated or rides with intoxicated roll off driver: No Water heater temperature set < 120 degrees: Yes Working smoke detector in home: Yes Fire extinguisher in home: Yes Carbon monoxide detector in home: Yes Firearms in home: No Medications Mecications: Medications at Discharge (Home Meds & RX) multivitamin 1 cap PO DAILY 11/15/12 syringe with cannula,disposabl 17 x 3 mL (BD Blunt Plastic Cannula) ##3 11/19/20 pantoprazole 40 mg tablet,delayed release 40 mg PO BID 03/01/21 ondansetron HCl 4 mg tablet 4 mg PO DAILY PRN Nausea And Vomiting 06/04/22 rizatriptan 10 mg tablet 10 mg PO 1-2XD PRN Migraine Headache 06/04/22 sucralfate 1 gram tablet 1 g PO QID 06/04/22 vortioxetine 20 mg tablet (Trintellix) 20 mg PO DAILY 06/04/22 dronabinol 10 mg capsule 10 mg PO TID 07/15/22 estradiol 1 mg tablet (Estrace) 1 mg PO QDAY 07/15/22 mecobalamin (vitamin B12) 10,000 mcg solution for injection 10,000 mcg IM .[id number] 07/15/22 omeprazole 20 mg capsule,delayed release 20 mg PO QDAY 07/15/22 loratadine 10 mg tablet 10 mg PO DAILY PRN Allergy Symptoms #90 tabs 09/16/22 alprazolam 0.5 mg tablet 0.5 mg PO BID 12/07/22 carisoprodol 350 mg tablet 350 mg PO QID PRN muscle pain 12/07/22 Shower chair with back #1 ea 03/09/23 kbswzwxfff-yibtjwlktamdq-dwcaonec 50 mg-300 mg-40 mg capsule (Fioricet) 1 cap PO TID PRN pain #50 caps 04/07/23 divalproex 500 mg tablet,delayed release 500 mg PO BID 04/25/23 hydrochlorothiazide 12.5 mg tablet 12.5 mg PO DAILY 04/25/23 linaclotide 145 mcg capsule (Linzess) 145 mcg PO DAILY 04/25/23 losartan 100 mg tablet 100 mg PO DAILY 04/25/23 mycophenolate mofetil 500 mg tablet 1,500 mg PO BID 04/25/23 oxycodone 10 mg tablet 10 mg PO Q6H PRN pain 04/25/23 prazosin 5 mg capsule 5 mg PO DAILY 04/25/23 vibegron 75 mg tablet (Gemtesa) 75 mg PO DAILY 04/25/23 ferrous sulfate 325 mg (65 mg iron) tablet (FeroSul) See Rx Instructions .Route .COMPLEX #45 tabs 06/24/23 potassium chloride 20 mEq tablet,extended release(part/cryst) See Rx Instructions .Route .COMPLEX #90 ea 07/21/23 furosemide 20 mg tablet See Rx Instructions .Route .COMPLEX #30 tabs 08/30/23 cariprazine 3 mg capsule (Vraylar) 3 mg PO DAILY 09/20/23 hydroxyzine HCl 50 mg tablet 50 mg PO BID 09/20/23 prednisone 5 mg tablet 20 mg PO DAILY 09/20/23 Allergies Allergies Allergy/AdvReac Type Severity Reaction Status Date / Time moxifloxacin HCl Allergy Severe Anaphylaxis Verified 09/20/23 23:02 [From Avelox] paliperidone [From Invega] Allergy Mild Rash Verified 09/20/23 23:02 hydroxychloroquine AdvReac Mild Verified 09/20/23 23:02 Quinolones AdvReac Mild Verified 09/20/23 23:02 glatiramer acetate AdvReac Rash Verified 09/20/23 23:02 [From Copaxone] lamotrigine [From Lamictal] AdvReac Rash Verified 09/20/23 23:02 lithium [[place]] AdvReac Rash Verified 09/20/23 23:02 Inviga Allergy Severe Itching Uncoded 09/20/23 23:02 Ydqje-Muvdacx-Pvsomx AdvReac Mild Uncoded 09/20/23 23:02 lamotrigine AdvReac rash Uncoded 09/20/23 23:02 [place] AdvReac Rash Uncoded 09/20/23 23:02 moxifloxacin HCl AdvReac throat Uncoded 09/20/23 23:02 closes Review of Systems Constitutional: Denies Fever Head: Reports Normocephalic and Atraumatic Cardiovascular: Reports Chest pain; Denies Chest Pressure or Edema Respiratory: Reports Pain with breathing; Denies Cough or Shortness of air Gastrointestinal: Denies Nausea, Vomiting, Diarrhea, Abdominal pain or Melena Genitourinary: Denies Dysuria or Frequency Neurological: Denies Headache Physical Examination Appearance: Positive Well-appearing, Well-nourished, No Apparent Distress and Alert and Oriented x3 Head: Positive Normocephalic and Atraumatic Neck: Positive Supple and Non-Tender Heart: Positive RRR and Other (+pain easily reproduces across anterior chest ) Respiratory: Positive Breath Sounds Clear, Bilaterally; Negative Crackles, Rhonchi or Wheezes GI/: Positive Soft, Nontender, Bowel sounds normal and No Distention Extremities: Negative Edema Neurological: Positive Cranial nerves intact, Normal Gait, Alert and Oriented Psychiatric: Positive Normal Judgement, Normal Insight and Affect Appropriate Vital Signs (Last 4 Hours) Vital Signs Last 4 Hours: Vital Signs: Last 4 Hours 09/21/23 07:00 09/21/23 07:00 09/21/23 07:46 Pulse Rate [Apical] 67 Respiratory Rate 16 Oxygen Delivery Method Room Air Room Air Telemetry Type Remote Telemetry Telemetry Monitoring Continues Telemetry Heart Rate 60 EKG UT Interval 0.14 EKG QRS Interval 0.10 Telemetry Strip Reading SR 09/21/23 08:00 09/21/23 09:00 Pulse Rate [Apical] Respiratory Rate Oxygen Delivery Method Room Air Room Air Telemetry Type Telemetry Monitoring Telemetry Heart Rate EKG UT Interval EKG QRS Interval Telemetry Strip Reading Labs This Visit Labs This Visit: Labs This Visit 09/20/23 09/20/23 09/21/23 23:20 23:24 01:35 WBC 2.94 L RBC 3.76 L Hgb 11.4 L Hct 34.0 L MCV 90.4 MCH 30.3 MCHC 33.5 RDW Coeff of Ronit 13.8 Plt Count 195 Immature Gran % (Auto) 0.3 Neut % (Auto) 45.7 Lymph % (Auto) 45.2 [place] % (Auto) 8.2 Eos % (Auto) 0.3 Baso % (Auto) 0.3 Neut # (Auto) 1.3 L Lymph # (Auto) 1.3 [place] # (Auto) 0.2 L Eos # (Auto) 0.0 Baso # (Auto) 0.0 Immature Gran # (Auto) 0.0 Sodium 126.6 L Potassium 3.62 Chloride 98.1 Carbon Dioxide 26.2 Anion Gap 5.92 BUN 7.7 Creatinine 0.61 Estimated GFR (MDRD) 128.00 BUN/Creatinine Ratio 12.62 Glucose 79.4 Calcium 8.11 L Total Bilirubin 0.27 AST 39.8 H ALT 15.5 Alkaline Phosphatase 53.0 Troponin I < 0.012 < 0.012 NT-Pro-B Natriuret Pep 150 Total Protein 7.43 Albumin 3.08 L Globulin 4.35 Albumin/Globulin Ratio 0.70 D-Dimer 753.56 H SARS CoV-2 RNA Rapid RAVINDER Negative 09/21/23 07:15 WBC RBC Hgb Hct MCV MCH MCHC RDW Coeff of Ronit Plt Count Immature Gran % (Auto) Neut % (Auto) Lymph % (Auto) [place] % (Auto) Eos % (Auto) Baso % (Auto) Neut # (Auto) Lymph # (Auto) [place] # (Auto) Eos # (Auto) Baso # (Auto) Immature Gran # (Auto) Sodium 131.8 L Potassium 3.79 Chloride 102.3 Carbon Dioxide 28.9 Anion Gap 4.39 BUN 7.0 Creatinine 0.50 L Estimated GFR (MDRD) 161.00 BUN/Creatinine Ratio 14.00 Glucose 65.7 L Calcium 8.20 L Total Bilirubin AST ALT Alkaline Phosphatase Troponin I < 0.012 NT-Pro-B Natriuret Pep Total Protein Albumin Globulin Albumin/Globulin Ratio D-Dimer SARS CoV-2 RNA Rapid RAVINDER Imaging Imaging: EXAM: CHEST CTA WITH CONTRAST (PULMONARY ARTERY) HISTORY: Chest pain. Elevated D-dimer. TECHNIQUE: CTA acquisition of the chest from the thoracic inlet to the upper abdomen following IV contrast administration timed to filling of the pulmonary artery. 3D/MIP/VR images were utilized. COMPARISON: Chest radiograph 07/16/2023. FINDINGS: Lines, Tubes, Devices: Right chest port catheter tip located at the superior cavoatrial junction. Pulmonary arteries: - Diagnostic quality: Adequate. - Central(Main/Lobar/Interlobar): No embolus. - Peripheral (Segmental/Subsegmental): No embolus. - Right ventricle/Left ventricle ratio (normal <0.9): Normal. - Main pulmonary artery: Normal caliber. Lung Parenchyma, Pleura, and Airways: Central airways are patent. Mild para septal emphysema. Mild dependent atelectasis in the lower lobes. No pleural effusion. Thoracic Inlet, Mediastinum, and Gaye: Thyroid gland is unremarkable. No lymphadenopathy. Heart, Vessels, and Pericardium: Normal caliber aorta. No visible coronary artery calcifications. No cariomegaly. No pericardial effusion. Bones and Soft Tissues: No acute osseous abnormality. Subcutaneous edema in the chest wall. Mild scoliosis and mild multilevel degenerative spondylosis. Old right rib fractures noted. Upper Abdomen: Postoperative changes at the gastroesophageal junction. IMPRESSION: No pulmonary embolus. Mild paraseptal emphysema. Review Review Statement: I have independently reviewed and interpreted the labs/EKGs/imaging that were ordered by the ER provider. I have reviewed all outside records that are available currently in our EMR including imaging/notes/labs from previous visits. Plan Reccomendations/Plan: 1. Chest pain - Trops neg. EKG unremarkable. Pain is reproducible. Pt states she f/u with her on air personality in [facility] in the next two weeks. States she's had a stress and echo within past 1 year at [facility]. 2. Hyponatremia, acute on chronic - Pt takes depakote, trintellix, and hctz, all which could be contributing. Improved today after NS overnight. Discussed holding hctz until cards f/u to see if chronic hyponatremia improves. Monitor BP outpatient. Pt agrees to plan of care. Will avoid adjusting psych meds at this time. 3. Lupus - Cont outpt management 4. MS - Cont outpt management. Currently on steroid taper. 5. Hypertension - Hold hctz 6. Bipolar disorder - Cont home meds Upon further review patient has chronic hx of hyponatremia. She takes multiple psych medications and hctz. She states she is feeling better today with her sodium improved to almost 132. Discussed stopping hctz to see if it would help, would like to avoid altering her psych medications as her mood has been stable. She is agreeable to this. She states that she has had a stress test and echo at [facility] within the past year with her on air personality, for whom she sees in the next couple weeks. Her chest pain is very reproducible. With that, normal trops and ekg, likely non cardiac in nature. She is requesting discharge. Discharged in stable condition. Discharge diagnoses: 1. Chest pain 2. Hyponatremia, acute on chronic - resolved 3. Lupus - Cont outpt management 4. MS - Cont outpt management. 5. Hypertension - Hold hctz 6. Bipolar disorder - Cont home meds Additional Planning: Case discussed with ED Physician, Dr. Álvarez sayed . DVT Prophylaxis: Ambulation Advanced Care Plannin minutes spent discussing advance care planning. Smoking Cessation: 3 minutes spent discussing smoking cessation. Admit to: Obs Discussed Plan of Care with Dr. Keely Llanes. Review With Patient Reviewed with Patient and Family: Patient and family have been counseled on condition and care plan and have no immediate questions. I have personally discussed and reviewed the patient's visit/current labs/imaging/decision making with Dr. Keely Llanes, my supervising attending. Total number of minutes spent with patient [85] min. More than 50% of the time spent with this patient was devoted to counseling and coordination of care. Time of Admission:09/21/23 02:24 Time of Discharge: 09/21/23 0945 Discharge Plan Discharge Discharge Orders: Discharge Patient (ONCE); Ordered 09/21/23 Ordered By: ANTONELLA CRAMER Activity Restrictions/Additional Instructions: DISCHARGE TO HOME DIET: CARDIAC ACTIVITY: TOLERATED STOP HYDROCHLOROTHIAZIDE F/U WITH CARDIOLOGY SCHEDULED MONITOR BP AT HOME Instructions: Chest Wall Pain (GEN) Patient Disposition: HOME SELF-CARE Prescriptions: Continued ferrous sulfate [FeroSul] 325 mg (65 mg iron) tablet See Rx Instructions .ROUTE .COMPLEX Qty: 45 0RF Dose Instruction: TAKE ONE TABLET EVERY OTHER DAY Rx Instructions: TAKE ONE TABLET EVERY OTHER DAY potassium chloride 20 mEq tablet,ER particles/crystals See Rx Instructions .ROUTE .COMPLEX Qty: 90 1RF Dose Instruction: TAKE ONE TABLET DAILY NEEDED Rx Instructions: TAKE ONE TABLET DAILY NEEDED furosemide 20 mg tablet See Rx Instructions .ROUTE .COMPLEX Qty: 30 1RF Dose Instruction: TAKE ONE TABLET DAILY NEEDED FOR LOCALIZED EDEMA Rx Instructions: TAKE ONE TABLET DAILY NEEDED FOR LOCALIZED EDEMA multivitamin 1 CAP capsule 1 cap PO DAILY pantoprazole 40 mg tablet,delayed release (DR/EC) 40 mg PO BID sucralfate 1 gram tablet 1 g PO QID Patient Comments: TAKE 1 TABLET BY MOUTH FOUR TIMES DAILY ondansetron HCl 4 mg tablet 4 mg PO DAILY PRN (Reason: Nausea And Vomiting) Patient Comments: TAKE 1 TABLET BY MOUTH DAILY NEEDED FOR NAUSEA OR VOMITING rizatriptan 10 mg tablet 10 mg PO 1-2XD MDD 2 PRN (Reason: Migraine Headache) Patient Comments: TAKE 1 TABLET BY MOUTH 1 TIME NEEDED FOR MIGRAINE. MAX 2 IN 24 HOURS. MAY REPEAT IN 2 HOURS NEEDED Trintellix 20 mg tablet 20 mg PO DAILY Patient Comments: TAKE 1 TABLET BY MOUTH DAILY alprazolam 0.5 mg tablet 0.5 mg PO BID carisoprodol 350 mg tablet 350 mg PO QID PRN (Reason: muscle pain) Patient Comments: TAKE 1 TABLET BY MOUTH 3 TIMES A DAY NEEDED FOR MUSCLE SPASMS divalproex 500 mg tablet,delayed release (DR/EC) 500 mg PO BID Linzess 145 mcg capsule 145 mcg PO DAILY losartan 100 mg tablet 100 mg PO DAILY mycophenolate mofetil 500 mg tablet 1,500 mg PO BID oxycodone 10 mg tablet 10 mg PO Q6H PRN (Reason: pain) Patient Comments: TAKE 1 TABLET BY MOUTH EVERY 8 HOURS NEEDED FOR PAIN. REDUCE DOSES TAKEN PAIN BECOMES MANAGEABLE. prazosin 5 mg capsule 5 mg PO DAILY Gemtesa 75 mg tablet 75 mg PO DAILY hydroxyzine HCl 50 mg tablet 50 mg PO BID Vraylar 3 mg capsule 3 mg PO DAILY prednisone 5 mg tablet 20 mg PO DAILY [id number] [Fioricet] 50-300-40 mg capsule 1 cap PO TID PRN (Reason: pain) Qty: 50 2RF mecobalamin (vitamin B12) 10,000 mcg recon soln 10,000 mcg IM .[id number] dronabinol 10 mg capsule 10 mg PO TID Rx Instructions: administer before lunch and evening meal/dinner estradiol [Estrace] 1 mg tablet 1 mg PO QDAY Rx Instructions: off 1 week; repeat cycle loratadine 10 mg tablet 10 mg PO DAILY PRN (Reason: Allergy Symptoms) Qty: 90 3RF Discontinued hydrochlorothiazide 12.5 mg tablet 12.5 mg PO DAILY omeprazole 20 mg capsule,delayed release(DR/EC) 20 mg PO QDAY No Action (DME) BD Blunt Plastic Cannula 17 x 3 mL syringe 3 sz DIRECTED Qty: 3 0RF Rx Instructions: Dispense 3mL syringe with needle. Dispense what her insurance will cover. (DME) Shower chair with back See Rx Instructions .ROUTE .MEDSUPPLY Qty: 1 0RF Rx Instructions: As directed Did you review [place] for ALL controlled substances?: Not Applicable Discussed opioids are addictive and Narcan is available by prescription or from pharmacy.: No Condition: Stable
[2023-09-22] MEDS ORDERED: NICODERM 21 MG TD SCH (09:00)
== END 2023-09-21 10:00 | disposition home or self-care (01) ==
LOC: MEDSURG B 22:42 → ED 22:42 → MEDSURG B 09-21 02:44
PROVIDERS: ADMIT Hospitalist; ATTEND Physician Assistant
DX: F17.210 Nicotine dependence, cigarettes, uncomplicated; R07.9 Chest pain, unspecified; M32.9 Systemic lupus erythematosus, unspecified; F31.9 Bipolar disorder, unspecified; I25.2 Old myocardial infarction; Z51.81 Encounter for therapeutic drug level monitoring; E87.1 Hypo-osmolality and hyponatremia; G35 Multiple sclerosis; R79.1 Abnormal coagulation profile; Z79.899 Other long term (current) drug therapy; Z20.822 Contact with and (suspected) exposure to COVID-19; I10 Essential (primary) hypertension

== ENCOUNTER 2023-12-15 18:27 | Observation (INO) ==
[2023-12-15 19:07] LABS: HEMATOCRIT 33.8 % (37.0-47.0); HEMOGLOBIN 11.6 g/dl (12.0-16.0); IMMATURE GRANULOCYTE % (AUTO) 0.6 % (0.0-5.0); LYMPHOCYTES % (AUTO) 30.8 (10.0-50.0); MEAN CORPUSCULAR HEMOGLOBIN 30.4 pg (27.0-31.0); MEAN CORPUSCULAR HGB CONC 34.3 (31.8-35.4); MEAN CORPUSCULAR VOLUME 88.7 fl (81.0-99.0); MONOCYTES # (AUTO) 0.3 K/uL (0.4-2.0); MONOCYTES % (AUTO) 9.2 (0-10); NEUTROPHILS # (AUTO) 1.9 K/ul (2.0-6.9); NEUTROPHILS % (AUTO) 59.4 % (42.2-75.2); PLATELET COUNT 189 10^3/uL (140-440); RDW COEFFICIENT OF VARIATION 13.3 % (11.6-14.8); RED BLOOD COUNT 3.81 10^6/ul (4.20-5.40); WHITE BLOOD COUNT 3.25 K/ul (4.6-10.2)
[2023-12-15 19:18] LABS: ALANINE AMINOTRANSFERASE 30.2 U/L (0-35); ALBUMIN 3.87 g/dL (3.5-5.0); ALKALINE PHOSPHATASE 59.4 U/L (38-126); ASPARTATE AMINO TRANSFERASE 58.8 U/L (14-36); BILIRUBIN,TOTAL 0.13 mg/dL (0.2-1.3); BLOOD UREA NITROGEN 9.3 mg/dL (7-17); CALCIUM 8.63 mg/dL (8.4-10.2); CARBON DIOXIDE 20.8 mmol/L (22-30.0); CHLORIDE 97.8 mmol/L (98-107); CREATININE 0.63 mg/dL (0.60-1.30); LIPASE 42.3 U/L (23-300); POTASSIUM 4.12 mmol/L (3.5-5.1); SODIUM 126.2 mmol/L (134.5-145); TOTAL PROTEIN 8.92 g/dL (6.3-8.2)
--- NOTE | 2023-12-15 19:51 | CT ---
EXAM: CT ABDOMEN AND PELVIS WITHOUT CONTRAST HISTORY: History of small bowel obstruction. Abdominal and pelvic pain. Abdominal distension. TECHNIQUE: CT acquisition of the abdomen and pelvis from the lower thorax through the pelvis without IV contrast administration. 2-D coronal and sagittal reformatted images were obtained from the axial source images. Oral Contrast: None. CT Dose Reduction Techniques Performed: Yes. COMPARISON: Contrast enhanced CT scan of the abdomen and pelvis dated 11/24/2023. FINDINGS: Lower Thorax: Within normal limits. Liver: No mass. Normal morphology. Biliary: The gallbladder and bile ducts are normal. Pancreas: No mass or evidence of pancreatitis. No duct dilation. Spleen: No mass. No splenomegaly. Adrenals: No mass. Kidneys/Ureters: No renal mass. No calculus or hydronephrosis. GI Tract: No bowel dilation. No bowel wall thickening. Prior gastric surgery. Peritoneal Cavity: No ascites. Retroperitoneum: No fluid collection. Lymph Nodes: No lymphadenopathy. Vasculature: There are aortic calcifications. No aortic or iliac aneurysm within limitations of nonc ontrast examination. Pelvis: No mass. Bladder is normal. Previous hysterectomy. Bones/Soft Tissues: No fracture or lytic lesion. Small fat-containing umbilical hernia. Anterior ab dominal wall is otherwise unremarkable. IMPRESSION: 1. Prior gastric surgery. 2. Atherosclerosis. 3. Hysterectomy. 4. Small fat-containing umbilical hernia. 5. Otherwise unremarkable noncontrast CT scan of the abdomen and pelvis. All CT scans are performed using dose optimization techniques as appropriate to the performed exam an d include at least one of the following: Automated exposure control, adjustment of the mA and/or kV according t o size, and the use of iterative reconstruction technique.
[2023-12-15] MEDS: DULCOLAX RC STA (20:20)
[2023-12-15] MEDS: SODIUM CHLORIDE 1,000 ML IV ONE (20:58)
--- NOTE | 2023-12-15 21:56 | ED.PDOC ---
General ED Provider: Dr. SULY SPARROW MD Chief Complaint: Hypertension Stated Complaint: 47 years old female with history of gastric bypass surgery multiple SBO, SLE, to the emergency room for abdominal pain and elevated blood pressure. Patient reports that her blood pressure at home was about 150/113 but now is good when she came to the emergency room. She has been also complaining of abdominal pain and distention she have not had a bowel movement for the last 3 days history got worse since he had multiple episodes of bowel obstruction. Otherwise denies any fever, chest pain, shortness of breath, changes in the urine. Time Seen by Provider: 12/15/23 18:35 Information Source: Patient Primary Care Provider: TANVIR REDDY APRN Nursing and Triage Documentation Reviewed and Agree: Yes What is Opioid Naive?: *Opioid Naive implies the patient is not already taking opioids or not chronically receiving opioids on a daily basis. *PRN dosing is not "usually" associated with tolerance. *Patients are at higher risk of over-sedation and aspiration. What is Opioid Tolerant?: *Opioid Tolerance implies less than the expected response to an opioid. *Acquired tolerance is defined by the patient taking 60mg of oral morphine daily (or equianalgesic dose of another opioid) for 1 week or more. *Often associated with chronic pain. *May take more than usual dose to achieve desired pain control. Review of Systems Review Of Systems Constitutional: Reports No symptoms [facility] Medical History Hernia of abdominal wall K43.9 - Ventral hernia without obstruction or gangrene (ICD-10) Long-term current use of intravenous immunoglobulin (IVIG) Z79.899 - Other fpc (current) drug therapy (ICD-10) Heart attack I21.9 - Acute myocardial infarction, unspecified (ICD-10) Schizophrenia F20.9 - Schizophrenia, unspecified (ICD-10) Bipolar disorder F31.9 - Bipolar disorder, unspecified (ICD-10) Optic neuropathy H46.9 - Unspecified optic neuritis (ICD-10) Lupus M32.9 - Systemic lupus erythematosus, unspecified (ICD-10) Family History Mother Breast cancer, left Breast cancer, right FATHER Cancer prostate BROTHER Cancer prostate Social History Smoking and tobacco status: Current every day smoker Tobacco: How many years used: 25 Second hand smoke exposure: Yes Alcohol intake: current Alcohol intake frequency: holidays/special occasions only Counseling given: No Substance use type: marijuana Counseling given: Yes Counseling provided: provider counseling and other Details: counseled on risks of continued marijuana use, especially with benzo Rx Christine/pentecostal: Yazidi Special christine needs: No Agree to transfusion: Yes Adopted: No Caregiver/support person: Yes Household members: children Housing: house Marital status: D Number of children: 3 Highest education level completed: high school graduate Financial difficulty paying for basics: not applicable service: No Current occupational status: disabled Current occupational exposures/hazards: No Pets and animals: Yes Leisure activites: other History of recent travel: No Sexually active: No Do you think of yourself as: straight/heterosexual Current gender identity: female Seatbelt use: always Helmet use: No (N/a) Drives intoxicated or rides with intoxicated water tanker driver: No Water heater temperature set < 120 degrees: Yes Working smoke detector in home: Yes Fire extinguisher in home: Yes Carbon monoxide detector in home: Yes Firearms in home: No Surgical History Status post placement of arteriovenous graft Z95.828 - Presence of other vascular implants and grafts (ICD-10) H/O: hysterectomy November 2020 Total Z90.710 - Acquired absence of both cervix and uterus (ICD-10) History of gynecological procedure exploratory Z98.890 - Other specified postprocedural states (ICD-10) History of gastrointestinal surgery (~2012) Gastric Band Z98.890 - Other specified postprocedural states (ICD-10) History of ear, nose, and throat (ENT) surgery (~2013) Ear lobe repair August 2013 Z98.890 - Other specified postprocedural states (ICD-10) Status post tonsillectomy Z90.89 - Acquired absence of other organs (ICD-10) Nasal septoplasty Status post hernia repair Z98.890 - Other specified postprocedural states (ICD-10) Status post bariatric surgery (~2008) Z98.84 - Bariatric surgery status (ICD-10) Female Reproductive History Menstrual Hx Hysterectomy: Yes Hx Tubal Ligation: No Physical Exam Physical Exam Appearance: Reports Well-appearing Neck: Supple Respiratory: Reports Airway patent, Breath sounds clear and Breath sounds equal Cardiovascular: Reports RRR, Pulses normal, No rub and No murmur GI/: Reports Soft and Other (Abdomen is distended with mild generalized tenderness) Musculoskeletal: Reports Normal strength, ROM intact and Other (Wound on the lateral side of the lower left leg) Course Course 12/15/23 18:59 12/15/23 18:59 Orders, Labs, Meds: Lab Review 12/15/23 18:59 WBC 3.25 L RBC 3.81 L Hgb 11.6 L Hct 33.8 L MCV 88.7 MCH 30.4 MCHC 34.3 RDW Coeff of Ronit 13.3 Plt Count 189 Immature Gran % (Auto) 0.6 Neut % (Auto) 59.4 Lymph % (Auto) 30.8 [place] % (Auto) 9.2 Eos % (Auto) 0.0 Baso % (Auto) 0.0 Neut # (Auto) 1.9 L Lymph # (Auto) 1.0 [place] # (Auto) 0.3 L Eos # (Auto) 0.0 Baso # (Auto) 0.0 Immature Gran # (Auto) 0.0 Sodium 126.2 L Potassium 4.12 Chloride 97.8 L Carbon Dioxide 20.8 L Anion Gap 11.72 BUN 9.3 Creatinine 0.63 Estimated GFR (MDRD) 123.00 BUN/Creatinine Ratio 14.76 Glucose 101.0 Calcium 8.63 Total Bilirubin 0.13 L AST 58.8 H ALT 30.2 Alkaline Phosphatase 59.4 Total Protein 8.92 H Albumin 3.87 Globulin 5.05 Albumin/Globulin Ratio 0.76 Lipase 42.3 Orders Category Date Time Status CBC W/ AUTO DIFF Stat LAB 12/15/23 18:59 Completed CMP [COMPREHENSIVE METABOLIC PANEL] Stat LAB 12/15/23 18:59 Completed COVID [SARS COV-2 RNA RAPID RAVINDER] Stat LAB 12/15/23 21:30 Received LIPASE Stat LAB 12/15/23 18:59 Completed OSMOLALITY,URINE Stat LAB 12/15/23 20:13 Received SERUM OSMOLALITY Stat LAB 12/15/23 20:13 Received Bisacodyl [Dulcolax] Meds 12/15/23 20:00 Discontinued 10 mg RC ONCE STA Sodium Chloride 0.9% [Sodium Chloride] 1,000 ml Meds 12/15/23 19:55 Active IV 125 mls/hr CT ABDOMEN/PELVIS WO CONTRAST Stat RADS 12/15/23 18:52 Completed Medications Generic Name Dose Route Start Last Admin Trade Name Robert PRN Reason Stop Dose Admin Sodium Chloride 1,000 mls @ 125 mls/hr 12/15/23 19:55 12/15/23 20:58 Sodium Chloride IV 12/16/23 03:54 125 mls/hr .Q8H ONE Administration Discontinued Medications Generic Name Dose Route Start Last Admin Trade Name Robert PRN Reason Stop Dose Admin Bisacodyl 10 mg 12/15/23 20:00 12/15/23 20:20 Bisacodyl 10 Mg Supp.Rect RC 12/15/23 20:01 10 mg ONCE STA Administration Vital Signs: Temp Pulse Resp BP Pulse Ox 12/15/23 18:31 98.7 F 76 18 129/[address] scan of the abdomen pelvis did not show any bowel obstruction patient was given Dulcolax suppository 10 mg for her constipation labs showed hyponatremia sodium of 126. Patient was seen by her primary care physician but did not started on any medication for her hyponatremia she saw her neurologist today and told her that primary care physician need to put her on salt tablets. Patient was started on NS at 125 mL/h spoke with the hospitalist on-call Noelle regarding admitting the patient for hyponatremia and she accepted the patient to be admitted under observation. Discharge Plan Discharge Patient Disposition: PLACED OBSERVATION Discharge Problem: Hyponatremia Did you review [place] COMMISSIONER OF OFFICIALS for ALL controlled substances?: Not Applicable ED Provider: SULY SPARROW Condition: Stable
[2023-12-15 22:00] LABS: SARS COV-2 RNA RAPID NAAT NEGATIVE (NEGATIVE)
[2023-12-15] MEDS ORDERED: ZOFRAN 4 MG/2 ML IVP PRN (22:02)
[2023-12-15] MEDS ORDERED: TYLENOL PO PRN (22:02)
[2023-12-15] MEDS ORDERED: SODIUM CHLORIDE 1,000 ML IV SCH (22:30)
[2023-12-15 23:08] VITALS: BMI 27.1
[2023-12-15] MEDS: OXYCODONE PO PRN (23:20)
[2023-12-15] MEDS: SODIUM CHLORIDE 1,000 ML IV SCH (23:20)
[2023-12-15] MEDS: MIRALAX PO PRN (23:20)
[2023-12-15] MEDS: SOMA PO PRN (23:21)
[2023-12-16 05:09] LABS: BASOPHILS % (AUTO) 0.5 % (0.0-3.0); EOSINOPHILS % (AUTO) 0.5 % (0.0-7.0); HEMATOCRIT 31.8 % (37.0-47.0); HEMOGLOBIN 10.6 g/dl (12.0-16.0); IMMATURE GRANULOCYTE % (AUTO) 1.5 % (0.0-5.0); LYMPHOCYTES # (AUTO) 0.8 K/uL (0.60-3.4); LYMPHOCYTES % (AUTO) 36.4 (10.0-50.0); MEAN CORPUSCULAR HEMOGLOBIN 29.4 pg (27.0-31.0); MEAN CORPUSCULAR HGB CONC 33.3 (31.8-35.4); MEAN CORPUSCULAR VOLUME 88.3 fl (81.0-99.0); MONOCYTES # (AUTO) 0.3 K/uL (0.4-2.0); MONOCYTES % (AUTO) 12.6 (0-10); NEUTROPHILS % (AUTO) 48.5 % (42.2-75.2); PLATELET COUNT 177 10^3/uL (140-440); RDW COEFFICIENT OF VARIATION 13.3 % (11.6-14.8); WHITE BLOOD COUNT 2.06 K/ul (4.6-10.2)
[2023-12-16 05:19] LABS: ALBUMIN 3.36 g/dL (3.5-5.0); ALKALINE PHOSPHATASE 51.5 U/L (38-126); BILIRUBIN,TOTAL 0.21 mg/dL (0.2-1.3); BLOOD UREA NITROGEN 9.5 mg/dL (7-17); CALCIUM 7.85 mg/dL (8.4-10.2); CARBON DIOXIDE 25.5 mmol/L (22-30.0); CHLORIDE 102.4 mmol/L (98-107); CREATININE 0.59 mg/dL (0.60-1.30); GLUCOSE 66.7 mg/dL (74-106); POTASSIUM 4.07 mmol/L (3.5-5.1); TOTAL PROTEIN 7.74 g/dL (6.3-8.2)
[2023-12-16 05:25] VITALS: BP 125/82; PULSE 71; RESP 16; TEMP 98.1
[2023-12-16] MEDS: K-DUR PO SCH (08:30)
[2023-12-16] MEDS: ATARAX PO SCH (08:48)
[2023-12-16] MEDS: PROTONIX PO SCH (08:49)
[2023-12-16] MEDS: AMITIZA PO SCH (08:49)
[2023-12-16] MEDS: XANAX PO SCH (08:49)
[2023-12-16] MEDS: CARAFATE PO SCH (08:49)
[2023-12-16] MEDS: PREDNISONE PO SCH (08:50)
[2023-12-16] MEDS: MINIPRESS PO SCH (08:50)
[2023-12-16] MEDS: DEPAKOTE PO SCH (08:50)
[2023-12-16] MEDS: COLACE PO SCH (08:51)
[2023-12-16] MEDS: COZAAR PO SCH (08:51)
[2023-12-16] MEDS: BACTRIM DS 800/160 MG PO SCH (08:51)
[2023-12-16] MEDS ORDERED: DRONABINOL 10 MG PO SCH (09:00)
[2023-12-16] MEDS ORDERED: NON-FORMULARY MEDICATION (Cariprazine [Vraylar] 3 mg capsule) PO SCH (09:00)
[2023-12-16] MEDS ORDERED: VIBEGRON 75 MG PO SCH (09:00)
[2023-12-16] MEDS ORDERED: ESTRADIOL PO SCH (09:00)
--- NOTE | 2023-12-16 09:25 | PCM.SS ---
Provider Provider[facility]LL[facility] CR[facility]ER [facility]-C, [facility] Date Admission Date: 12/15/23 Discharge Date Discharge Date: 12/16/23 Primary Care Physician Primary Care Physician: TANVIR REDDY APRN Chief Complaint Reason For Visit: HYPONATREMIA History of Present Illness History of Present Illness: Admitted 12/15/23 22:02, this 47 year old AA/BLACK/F with significant pmhx presented to ER with cc of 3 days of abdominal pain and no BM. She takes otc options for constipation. Has hx of bowel obstruction and hx of gastric bypass. CT a/p did not show any acute abnormalities. However sodium was 126. Pt has had low sodium in the past. Recently in August HCTZ was stopped. She also takes some psych meds likely contributing. She was admitted overnight for fluids. Today her sodium is 130. She is feeling better. She had two BMs overnight. She sees her psych provider in next few weeks. We discussed starting salt tabs, f/u with pcp to monitor sodium levels, and discuss going further with psych her medications. Her psych symptoms are overall controlled on her current regimen so will not change medications at this time. Of note she has a wound on right lower leg, it is healing. She started Bactrim Wednesday. She states it is improved since starting it. [facility] Medical History Hernia of abdominal wall K43.9 - Ventral hernia without obstruction or gangrene (ICD-10) Long-term current use of intravenous immunoglobulin (IVIG) Z79.899 - Other oysterman (current) drug therapy (ICD-10) Heart attack I21.9 - Acute myocardial infarction, unspecified (ICD-10) Schizophrenia F20.9 - Schizophrenia, unspecified (ICD-10) Bipolar disorder F31.9 - Bipolar disorder, unspecified (ICD-10) Optic neuropathy H46.9 - Unspecified optic neuritis (ICD-10) Lupus M32.9 - Systemic lupus erythematosus, unspecified (ICD-10) Surgical History Status post placement of arteriovenous graft Z95.828 - Presence of other vascular implants and grafts (ICD-10) H/O: hysterectomy November 2020 Total Z90.710 - Acquired absence of both cervix and uterus (ICD-10) History of gynecological procedure exploratory Z98.890 - Other specified postprocedural states (ICD-10) History of gastrointestinal surgery (~2012) Gastric Band Z98.890 - Other specified postprocedural states (ICD-10) History of ear, nose, and throat (ENT) surgery (~2013) Ear lobe repair August 2013 Z98.890 - Other specified postprocedural states (ICD-10) Status post tonsillectomy Z90.89 - Acquired absence of other organs (ICD-10) Nasal septoplasty Status post hernia repair Z98.890 - Other specified postprocedural states (ICD-10) Status post bariatric surgery (~2008) Z98.84 - Bariatric surgery status (ICD-10) Family History Mother Breast cancer, left Breast cancer, right FATHER Cancer prostate BROTHER Cancer prostate Social History Smoking and tobacco status: Current every day smoker Tobacco: How many years used: 25 Second hand smoke exposure: Yes Alcohol intake: current Alcohol intake frequency: holidays/special occasions only Counseling given: No Substance use type: marijuana Counseling given: Yes Counseling provided: provider counseling and other Details: counseled on risks of continued marijuana use, especially with benzo Rx Christine/christianity: Adventist Special christine needs: No Agree to transfusion: Yes Adopted: No Caregiver/support person: Yes Household members: children Housing: house Marital status: D Number of children: 3 Highest education level completed: high school graduate Financial difficulty paying for basics: not applicable service: No Current occupational status: disabled Current occupational exposures/hazards: No Pets and animals: Yes Leisure activites: other History of recent travel: No Sexually active: No Do you think of yourself as: straight/heterosexual Current gender identity: female Seatbelt use: always Helmet use: No (N/a) Drives intoxicated or rides with intoxicated dedicated local truck driver: No Water heater temperature set < 120 degrees: Yes Working smoke detector in home: Yes Fire extinguisher in home: Yes Carbon monoxide detector in home: Yes Firearms in home: No Medications Mecications: Medications at Discharge (Home Meds & RX) multivitamin 1 cap PO DAILY 11/15/12 syringe with cannula,disposabl 17 x 3 mL (BD Blunt Plastic Cannula) ##3 11/19/20 pantoprazole 40 mg tablet,delayed release 40 mg PO BID 03/01/21 ondansetron HCl 4 mg tablet 4 mg PO DAILY PRN Nausea And Vomiting 06/04/22 rizatriptan 10 mg tablet 10 mg PO 1-2XD PRN Migraine Headache 06/04/22 sucralfate 1 gram tablet 1 g PO QID 06/04/22 vortioxetine 20 mg tablet (Trintellix) 20 mg PO DAILY 06/04/22 dronabinol 10 mg capsule 10 mg PO TID 07/15/22 estradiol 1 mg tablet (Estrace) 1 mg PO QDAY 07/15/22 mecobalamin (vitamin B12) 10,000 mcg solution for injection 10,000 mcg IM .[id number] 07/15/22 loratadine 10 mg tablet 10 mg PO DAILY PRN Allergy Symptoms #90 tabs 09/16/22 alprazolam 0.5 mg tablet 0.5 mg PO BID 12/07/22 carisoprodol 350 mg tablet 350 mg PO QID PRN muscle pain 12/07/22 Shower chair with back #1 ea 03/09/23 irdxfjjvzm-wlsyiihhxwvmu-bldocjfe 50 mg-300 mg-40 mg capsule (Fioricet) 1 cap PO TID PRN pain #50 caps 04/07/23 divalproex 500 mg tablet,delayed release 500 mg PO BID 04/25/23 linaclotide 145 mcg capsule (Linzess) 145 mcg PO DAILY 04/25/23 losartan 100 mg tablet 100 mg PO DAILY 04/25/23 mycophenolate mofetil 500 mg tablet 1,500 mg PO BID 04/25/23 oxycodone 10 mg tablet 10 mg PO Q6H PRN pain 04/25/23 prazosin 5 mg capsule 5 mg PO DAILY 04/25/23 vibegron 75 mg tablet (Gemtesa) 75 mg PO DAILY 04/25/23 cariprazine 3 mg capsule (Vraylar) 3 mg PO DAILY 09/20/23 hydroxyzine HCl 50 mg tablet 50 mg PO BID 09/20/23 prednisone 5 mg tablet 20 mg PO DAILY 09/20/23 furosemide 20 mg tablet See Rx Instructions .Route .COMPLEX #30 tabs 10/25/23 clonidine HCl 0.1 mg tablet See Rx Instructions .Route .COMPLEX #56 tabs 11/11/23 ferrous sulfate 325 mg (65 mg iron) tablet (FeroSul) See Rx Instructions .Route .COMPLEX #45 tabs 11/15/23 mupirocin 2 % topical ointment 1 applic topical TID #22 grams 12/01/23 potassium chloride 20 mEq tablet,extended release(part/cryst) 20 meq PO DAILY 90 days #90 ea 12/08/23 sulfamethoxazole 800 mg-trimethoprim 160 mg tablet (Bactrim DS) 1 tab PO BID 7 days #14 tabs 12/13/23 cyanocobalamin (vitamin B-12) 1,000 mcg/mL injection solution 1,000 mcg IM QMONTH #10 mL 12/16/23 Allergies Allergies Allergy/AdvReac Type Severity Reaction Status Date / Time moxifloxacin HCl Allergy Severe Anaphylaxis Verified 12/15/23 18:36 [From Avelox] paliperidone [From Invega] Allergy Mild Rash Verified 12/15/23 18:36 hydroxychloroquine AdvReac Mild Rash Verified 12/15/23 18:36 Quinolones AdvReac Mild Rash Verified 12/15/23 18:36 glatiramer acetate AdvReac Rash Verified 12/15/23 18:36 [From Copaxone] lamotrigine [From Lamictal] AdvReac Rash Verified 12/15/23 18:36 lithium [[place]] AdvReac Rash Verified 12/15/23 18:36 Inviga Allergy Severe Itching Uncoded 12/13/23 15:50 Ilyuq-Xzpljos-Hphkcc AdvReac Mild Rash Uncoded 12/13/23 15:50 lamotrigine AdvReac rash Uncoded 12/13/23 15:50 [place] AdvReac Rash Uncoded 12/13/23 15:50 moxifloxacin HCl AdvReac throat Uncoded 12/13/23 15:50 closes Pregabalin AdvReac Unknown Uncoded 12/13/23 15:50 Review of Systems Constitutional: Denies Fever Head: Reports Normocephalic and Atraumatic Cardiovascular: Denies Chest pain or Chest Pressure Respiratory: Denies Cough or Shortness of air Gastrointestinal: Reports Constipation and Abdominal pain; Denies Nausea, Vomiting, Diarrhea, Black Tarry Stools or Melena Genitourinary: Denies Dysuria or Frequency Dermatologic: Reports Other (+wound to R lower leg ) Psychiatric: Reports Depression and Anxiety; Denies Suicidal Physical Examination Appearance: Positive No Apparent Distress and Alert and Oriented x3 Head: Positive Normocephalic and Atraumatic Respiratory: Positive Breath Sounds Clear, Bilaterally and Respirations Nonlabored; Negative Crackles, Rhonchi or Wheezes GI/: Positive Soft, Nontender, Bowel sounds normal and No Distention Neurological: Positive Cranial nerves intact, Alert and Oriented Psychiatric: Positive Normal Judgement, Normal Insight, Affect Appropriate and Mood Appropriate Additional Findings: Right lower leg wound - irregularly shaped. Pt states it was a blister and it popped. Mild erythema and swelling noted around wound. No drainage, it is dry. Per pt it is improving. Vital Signs (Last 4 Hours) Vital Signs Last 4 Hours: Vital Signs: Last 4 Hours 12/16/23 05:54 12/16/23 07:00 Oxygen Delivery Method Room Air Room Air Labs This Visit Labs This Visit: Labs This Visit 12/15/23 12/15/23 12/16/23 18:59 21:30 04:58 WBC 3.25 L 2.06 L RBC 3.81 L 3.60 L Hgb 11.6 L 10.6 L Hct 33.8 L 31.8 L MCV 88.7 88.3 MCH 30.4 29.4 MCHC 34.3 33.3 RDW Coeff of Ronit 13.3 13.3 Plt Count 189 177 Immature Gran % (Auto) 0.6 1.5 Neut % (Auto) 59.4 48.5 Lymph % (Auto) 30.8 36.4 [place] % (Auto) 9.2 12.6 H Eos % (Auto) 0.0 0.5 Baso % (Auto) 0.0 0.5 Neut # (Auto) 1.9 L 1.0 L Lymph # (Auto) 1.0 0.8 [place] # (Auto) 0.3 L 0.3 L Eos # (Auto) 0.0 0.0 Baso # (Auto) 0.0 0.0 Immature Gran # (Auto) 0.0 0.0 Sodium 126.2 L 130.0 L Potassium 4.12 4.07 Chloride 97.8 L 102.4 Carbon Dioxide 20.8 L 25.5 Anion Gap 11.72 6.17 BUN 9.3 9.5 Creatinine 0.63 0.59 L Estimated GFR (MDRD) 123.00 133.00 BUN/Creatinine Ratio 14.76 16.10 Glucose 101.0 66.7 L Calcium 8.63 7.85 L Total Bilirubin 0.13 L 0.21 AST 58.8 H 67.0 H ALT 30.2 31.0 Alkaline Phosphatase 59.4 51.5 Total Protein 8.92 H 7.74 Albumin 3.87 3.36 L Globulin 5.05 4.38 Albumin/Globulin Ratio 0.76 0.76 Lipase 42.3 SARS CoV-2 RNA Rapid RAVINDER Negative Imaging Imaging: EXAM: CT ABDOMEN AND PELVIS WITHOUT CONTRAST HISTORY: History of small bowel obstruction. Abdominal and pelvic pain. Abdominal distension. TECHNIQUE: CT acquisition of the abdomen and pelvis from the lower thorax through the pelvis without IV contrast administration. 2-D coronal and sagittal reformatted images were obtained from the axial source images. Oral Contrast: None. CT Dose Reduction Techniques Performed: Yes. COMPARISON: Contrast enhanced CT scan of the abdomen and pelvis dated 11/24/2023. FINDINGS: Lower Thorax: Within normal limits. Liver: No mass. Normal morphology. Biliary: The gallbladder and bile ducts are normal. Pancreas: No mass or evidence of pancreatitis. No duct dilation. Spleen: No mass. No splenomegaly. Adrenals: No mass. Kidneys/Ureters: No renal mass. No calculus or hydronephrosis. GI Tract: No bowel dilation. No bowel wall thickening. Prior gastric surgery. Peritoneal Cavity: No ascites. Retroperitoneum: No fluid collection. Lymph Nodes: No lymphadenopathy. Vasculature: There are aortic calcifications. No aortic or iliac aneurysm within limitations of noncontrast examination. Pelvis: No mass. Bladder is normal. Previous hysterectomy. Bones/Soft Tissues: No fracture or lytic lesion. Small fat-containing umbilical hernia. Anterior abdominal wall is otherwise unremarkable. IMPRESSION: 1. Prior gastric surgery. 2. Atherosclerosis. 3. Hysterectomy. 4. Small fat-containing umbilical hernia. 5. Otherwise unremarkable noncontrast CT scan of the abdomen and pelvis. Review Review Statement: I have independently reviewed and interpreted the labs/EKGs/imaging that were ordered by the ER provider. I have reviewed all outside records that are available currently in our EMR including imaging/notes/labs from previous visits. Plan Reccomendations/Plan: 1. Acute on chronic hyponatremia - Serum and urine osmolality pending. However likely due to her psychiatric medications. Will start sodium tabs. Sodium improved after fluids overnight. 2. Constipation - Pt had two Bms over night after a dulcolax. 3. Right lower leg wound - Improving, continue Bactrim. 4. Lupus - Cont outpt management 5. MS - Cont outpt management. 6. Hypertension - Cont home meds 7. Bipolar disorder - Cont home meds Today her sodium is 130. She is feeling better. She had two BMs overnight. She sees her psych provider in next few weeks. We discussed starting salt tabs, f/u with pcp to monitor sodium levels, and discuss going further with psych her medications. Her psych symptoms are overall controlled on her current regimen so will not change medications at this time. Of note she has a wound on right lower leg, it is healing. She started Bactrim Wednesday. She states it is improved since starting it. Discharge diagnoses: 1. Acute on chronic hyponatremia, improved 2. Constipation, resolved 3. Right lower leg wound, improved 4. Lupus 5. MS 6. Hypertension 7. Bipolar disorder Additional Planning: Case discussed with ED Physician, Dr. Henri Sage. Advanced Care Plannin minutes spent discussing advance care planning. Admit to: Obs Discussed Plan of Care with Dr. Keely Llanes. Review With Patient Reviewed with Patient and Family: Patient and family have been counseled on condition and care plan and have no immediate questions. I have personally discussed and reviewed the patient's visit/current labs/imaging/decision making with Dr. Keely Llanes, my supervising attending. Total number of minutes spent with patient [85 ] min. More than 50% of the time spent with this patient was devoted to counseling and coordination of care. Time of Admission:12/15/23 22:02 Time of Discharge: 12/16/23926 Discharge Plan Discharge Discharge Orders: Discharge Patient (ONCE); Ordered 12/16/23 Ordered By: ANTONELLA CRAMER Activity Restrictions/Additional Instructions: DISCHARGE TO HOME DX: HYPONATREMIA, CONSTIPATION PHARMACY: [facility] SODIUM TABS HAVE BEEN ADDED F/U WITH PCP TO MONITOR SODIUM F/U WITH PSYCH TO DISCUSS YOUR MEDICATIONS AND LOW SODIUM Patient Disposition: HOME SELF-CARE Prescriptions: New sodium chloride 1,000 mg tablet,soluble 1,000 mg PO TID Qty: 30 0RF Rx Instructions: SEE PCP FOR REFILLS IF INDICATED Continued clonidine HCl 0.1 mg tablet See Rx Instructions .ROUTE .COMPLEX Qty: 56 1RF Dose Instruction: TAKE 1-2 TABS TWICE DAILY NEEDED BLOOD PRESSURE >146/90 Rx Instructions: TAKE 1-2 TABS TWICE DAILY NEEDED BLOOD PRESSURE >146/90 ferrous sulfate [FeroSul] 325 mg (65 mg iron) tablet See Rx Instructions .ROUTE .COMPLEX Qty: 45 0RF Dose Instruction: TAKE ONE TABLET EVERY OTHER DAY Rx Instructions: TAKE ONE TABLET EVERY OTHER DAY potassium chloride 20 mEq tablet,ER particles/crystals 20 meq PO DAILY 90 Days Qty: 90 1RF cyanocobalamin (vitamin B-12) 1,000 mcg/mL solution 1,000 mcg IM QMONTH Qty: 10 0RF multivitamin 1 CAP capsule 1 cap PO DAILY pantoprazole 40 mg tablet,delayed release (DR/EC) 40 mg PO BID sucralfate 1 gram tablet 1 g PO QID Patient Comments: TAKE 1 TABLET BY MOUTH FOUR TIMES DAILY ondansetron HCl 4 mg tablet 4 mg PO DAILY PRN (Reason: Nausea And Vomiting) Patient Comments: TAKE 1 TABLET BY MOUTH DAILY NEEDED FOR NAUSEA OR VOMITING rizatriptan 10 mg tablet 10 mg PO 1-2XD MDD 2 PRN (Reason: Migraine Headache) Patient Comments: TAKE 1 TABLET BY MOUTH 1 TIME NEEDED FOR MIGRAINE. MAX 2 IN 24 HOURS. MAY REPEAT IN 2 HOURS NEEDED Trintellix 20 mg tablet 20 mg PO DAILY Patient Comments: TAKE 1 TABLET BY MOUTH DAILY alprazolam 0.5 mg tablet 0.5 mg PO BID carisoprodol 350 mg tablet 350 mg PO QID PRN (Reason: muscle pain) Patient Comments: TAKE 1 TABLET BY MOUTH 3 TIMES A DAY NEEDED FOR MUSCLE SPASMS divalproex 500 mg tablet,delayed release (DR/EC) 500 mg PO BID Linzess 145 mcg capsule 145 mcg PO DAILY losartan 100 mg tablet 100 mg PO DAILY mycophenolate mofetil 500 mg tablet 1,500 mg PO BID oxycodone 10 mg tablet 10 mg PO Q6H PRN (Reason: pain) Patient Comments: TAKE 1 TABLET BY MOUTH EVERY 8 HOURS NEEDED FOR PAIN. REDUCE DOSES TAKEN PAIN BECOMES MANAGEABLE. prazosin 5 mg capsule 5 mg PO DAILY Gemtesa 75 mg tablet 75 mg PO DAILY hydroxyzine HCl 50 mg tablet 50 mg PO BID Vraylar 3 mg capsule 3 mg PO DAILY prednisone 5 mg tablet 20 mg PO DAILY [id number]-[id number] [Fioricet] 50-300-40 mg capsule 1 cap PO TID PRN (Reason: pain) Qty: 50 2RF mupirocin 2 % ointment 1 applic topical TID Qty: 22 0RF mecobalamin (vitamin B12) 10,000 mcg recon soln 10,000 mcg IM .[id number] dronabinol 10 mg capsule 10 mg PO TID Rx Instructions: administer before lunch and evening meal/dinner estradiol [Estrace] 1 mg tablet 1 mg PO QDAY Rx Instructions: off 1 week; repeat cycle loratadine 10 mg tablet 10 mg PO DAILY PRN (Reason: Allergy Symptoms) Qty: 90 3RF sulfamethoxazole-trimethoprim [Bactrim DS] 800-160 mg tablet 1 tab PO BID 7 Days Qty: 14 0RF No Action (DME) BD Blunt Plastic Cannula 17 x 3 mL syringe 3 sz [facility] DIRECTED Qty: 3 0RF Rx Instructions: Dispense 3mL syringe with needle. Dispense what her insurance will cover. furosemide 20 mg tablet 20 mg PO DAILY PRN (Reason: for edema) 30 Days Qty: 30 1RF (DME) Shower chair with back See Rx Instructions .ROUTE .MEDSUPPLY Qty: 1 0RF Rx Instructions: As directed Did you review [place] [employer] for ALL controlled substances?: Not Applicable Discussed opioids are addictive and Narcan is available by prescription or from pharmacy.: No Condition: Stable Referrals: TANVIR REDDY APRN [Primary Care Provider] - 12/24/23 10:15 am
[2023-12-17] MEDS ORDERED: FERROUS SULFATE PO SCH (09:00)
[2023-12-17 22:08] LABS: OSMOLALITY,URINE 285 mOsmol/kg (.)
[2023-12-18 21:11] LABS: SERUM OSMOLALITY 260 mOsmol/kg (275-295)
== END 2023-12-16 10:15 | disposition home or self-care (01) ==
LOC: MEDSURG B 18:27 → ED 18:27 → MEDSURG B 22:45
PROVIDERS: ADMIT Hospitalist; ATTEND Physician Assistant
DX: I10 Essential (primary) hypertension; M32.9 Systemic lupus erythematosus, unspecified; Z20.822 Contact with and (suspected) exposure to COVID-19; Z51.81 Encounter for therapeutic drug level monitoring; I70.90 Unspecified atherosclerosis; Z87.19 Personal history of other diseases of the digestive system; K42.9 Umbilical hernia without obstruction or gangrene; Z79.899 Other long term (current) drug therapy; Z98.84 Bariatric surgery status; K59.00 Constipation, unspecified; S81.801A Unspecified open wound, right lower leg, initial encounter; F17.210 Nicotine dependence, cigarettes, uncomplicated; E87.1 Hypo-osmolality and hyponatremia; F31.9 Bipolar disorder, unspecified; R10.9 Unspecified abdominal pain; G35 Multiple sclerosis